=== PATIENT | female | born 1975 | race Caucasian/White ===

== ENCOUNTER 2018-05-20 21:47 | Inpatient (IN) ==
[2018-05-20] MEDS ORDERED: Isovue-370 500 ML INFUS..BTL IV ONE (22:41)
[2018-05-20 22:45] LABS: Bilirubin,Urine Moderate (Negative); Blood,Urine Small (Negative); Clarity,Urine Turbid (Clear); Color,Urine Orange (Yellow); Glucose,Urine (UA) Normal (Normal); Ketones,Urine Trace mg/dL (Negative); Leukocyte Esterase,Urine Small (Negative); Nitrite,Urine Positive (Negative); PH,Urine 5.5 pH Units (5.0-8.0); Protein,Urine 30 mg/dL (Neg-Trace); Specific Gravity,Urine > 1.030 (1.010-1.025); Urobilinogen,Urine Normal (Normal)
[2018-05-20 22:49] LABS: Hyaline Casts,Urine None Seen per lpf (None-Few); Squamous Epithelial Cell,Urine Moderate per lpf (None-Few); WBC,Urine 0-3 per hpf (0-3)
[2018-05-20 23:05] LABS: Amorphous Sediment,Urine Many (Few); Calcium Oxalate Crystals,Urine Present
[2018-05-20 23:06] LABS: Bacteria,Urine Moderate per hpf (None-Few)
[2018-05-20] MEDS ORDERED: Hyoscyamine 0.5 MG/ML MLS IVP ONE (23:14)
[2018-05-20] MEDS ORDERED: Ondansetron 4 MG/2 ML VIAL IVP ONE (23:14)
[2018-05-20 23:21] LABS: Basophils % 0.4 %; Eosinophils # 0.1 K/mcL (0.0-0.6); Eosinophils % 0.7 %; Hemoglobin 13.3 g/dL (11.5-15.4); Immature Granulocytes % 0.3 % (0-4); Lymphocytes # 1.1 K/mcL (0.6-4.6); Lymphocytes % 14.7 %; Mean Corpuscular HGB Conc 34.1 g/dL (31.6-35.5); Mean Corpuscular Hemoglobin 32.4 pg (28.0-33.3); Mean Corpuscular Volume 94.9 fL (83.0-100.0); Mean Platelet Volume 10.7 fL (9.4-12.4); Monocytes # 0.7 K/mcL (0.0-1.3); Monocytes % 8.5 %; Neutrophils # 5.8 K/mcL (1.6-8.9); Platelet Count 200 K/mcL (140-400); Red Blood Count 4.11 M/mcL (3.82-4.97); Red Cell Distribution Width 13.1 % (11.5-14.5); Segmented Neutrophils % 75.4 %
[2018-05-20 23:40] LABS: Alanine Aminotransferase 192 Units/L (7-52); Albumin 4.2 g/dL (3.5-5.7); Albumin/Globulin Ratio 1.6 (1.1-2.2); Alkaline Phosphatase 130 Units/L (34-104); Aspartate Amino Transferase 464 Units/L (13-39); BUN/Creatinine Ratio 10 (6-26); Bilirubin,Direct 1.4 mg/dL (0.0-0.2); Bilirubin,Indirect 0.4 mg/dL (0.0-1.2); Bilirubin,Total 1.8 mg/dL (0.3-1.0); Blood Urea Nitrogen 6 mg/dL (6-20); Calcium 9.2 mg/dL (8.6-10.3); Carbon Dioxide 23 mEq/L (23-29); Chloride 107 mEq/L (98-107); Globulin 2.6 g/dL (2.4-3.5); Glucose 132 mg/dL (70-105); Lipase 28 Units/L (11-82); Osmolality,Calculated 283 (280-300); Sodium 137 mEq/L (136-145); Total Protein 6.8 g/dL (6.4-8.9); eGFR For Non-African Americans > 60 (> 60)
[2018-05-21] MEDS ORDERED: 0.9 % Sodium Chloride 1,000 ML IVC ONE (00:58)
--- NOTE | 2018-05-21 01:39 | Emergency Department Note ---
Disposition Clinical Impression: Cholecystitis, Elevated LFTs, Nausea vomiting and diarrhea Abdominal pain Qualifiers: Abdominal location: right upper quadrant Qualified Code(s): R10.11 - Right upper quadrant pain Disposition: Admitted As Inpatient Condition: Fair Forms: ED Satisfaction Letter, Work/School Release Time of Disposition: 04:03 Abdominal Pain HPI - General Chief Complaint: ED Abdominal Pain Stated Complaint: abdominal pain Time Seen by Provider: 05/20/18 22:16 Source: patient Mode of arrival: ambulatory Limitations: no limitations Nursing Notes Reviewed: Yes Vital Signs Reviewed: Yes - History of Present Illness HPI Narrative: Patient is a 42-year-old female who presents to [facility] ED with a chief complaint of epigastric and right upper quadrant abdominal pain. States her symptoms started this morning prior to her boarding a flight coming back from [place]. Patient states that the symptoms seem to get a little bit better and she was able to eat on her flight. However when she got off, the pain came back worse. States she was nauseated and vomited everything up. States she has had persistent severe pain in the epigastric and right upper quadrant since then. Denies ever having anything like this before. No prior history of any intra-abdominal surgeries. Patient denies any medical problems. States she did take a Zantac to see if this help her symptoms but it did not. Patient denies any alcohol use. Also states she does not eat any seafood. Pt Subjective Complaint: abdominal pain Onset (ago): day(s) (1) Consistency: Worsening Location: RUQ, epigastric Pain Severity: severe Pain Scale: 8 Quality: aching Radiation: none Migration to: no migration Improves with: nothing Worsens with: eating Associated symptoms: Reports: nausea, vomiting, diarrhea. Denies: fever, chills , constipation, dysuria Treatments prior to arrival: none - Related Data Previous Rx's Medication Instructions Recorded Ibuprofen [Motrin] 800 mg PO Q8HR #100 tablet 05/10/16 Penicillin VK 500 mg PO BID #20 tablet 05/10/16 Cyclobenzaprine [Flexeril] 10 mg PO TID PRN #20 tablet 05/09/18 methylPREDNISolone [Medrol] 1 each PO DAILY #1 pack 05/09/18 Allergies Allergy/AdvReac Type Severity Reaction Status Date / Time No Known Allergies Allergy Verified 05/10/16 18:34 All systems ED: reviewed and negative except as stated. 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 Psychiatric history: Reports: no psych history - Social History Smoking status: Current every day smoker Alcohol use: Reports: rarely Drug use: Reports: none Physical Exam - General General appearance: alert, in no apparent distress - Head Head exam: atraumatic, normocephalic, normal inspection - Eye Eye exam: Present: EOMI - ENT ENT exam: normal exam, normal oropharynx, mucous membranes moist - Neck Neck exam: Present: normal inspection, full ROM, trachea midline - Chest Chest inspection: Present: normal inspection, symmetric chest wall rise - Respiratory Respiratory exam: Present: normal lung sounds bilaterally - Cardiovascular Cardiovascular exam: Present: regular rate, normal rhythm, normal heart sounds - Abdominal Exam Abdominal exam: Present: soft, tenderness. Absent: distention, guarding, rebound, rigidity Abdominal tenderness: Present: RUQ, epigastrium, moderate - Extremities Exam Extremities exam: Present: normal inspection, full ROM. Absent: tenderness, pedal edema - Neurological Exam Neurological exam: Present: alert, oriented X3 - Psychiatric Psychiatric exam: Present: normal affect, normal mood - Skin Skin exam: Present: warm, dry, intact, normal color Course Course Narrative: Patient seen and examined. Right upper quadrant and epigastric abdominal pain all day. Abdominal labs ordered. We will do a CT scan of the abdomen and pelvis with IV contrast to evaluate. - Reevaluation(s) Reevaluation #1: CT scan did show distended gallbladder with some intra-hepatic biliary dilation. Ultrasound of the gallbladder ordered. Patient's lab work does show signs of elevated LFTs and mildly elevated total bilirubin and direct bilirubin. Hepatitis profile ordered. Time: 04:02 Reevaluation #2: Patient's gallbladder ultrasound was equivocal for acute cholecystitis. I discussed with surgeon Dr. Thompson who has accepted patient for admission. She would like basic initial orders to be placed including normal saline at 125 mL per hour, Zosyn Q8 hours, oxycodone sublingual every 4 hours prn pain, Zofran 4 mg every 8 hours prn nausea. These admission orders have been placed Time: 04:05 Vital Signs Temperature 97.5 F L 05/20/18 22:03 Pulse Rate 74 05/20/18 22:03 Respiratory Rate 16 05/20/18 22:03 Blood Pressure 125/80 05/20/18 22:03 O2 Sat by Pulse Oximetry 97 05/20/18 22:03 Temperature 97.5 F L 05/20/18 22:03 Pulse Rate 65 05/21/18 02:35 Respiratory Rate 16 05/21/18 02:35 Blood Pressure 115/81 05/21/18 02:35 O2 Sat by Pulse Oximetry 98 05/21/18 02:35 Oxygen Delivery Oxygen Delivery Room Air Abdominal Pain - Medical Records Medical records reviewed: Yes I reviewed the patient's medical records. - Lab Data Lab results reviewed: Yes I reviewed the patient's lab results. Result diagrams: 05/20/18 22:42 05/20/18 22:42 Lab Results 05/20/18 05/20/18 05/20/18 Range/Units 21:56 22:42 22:42 WBC 7.7 (4.3-11.1) K/mcL RBC 4.11 (3.82-4.97) M/mcL Hgb 13.3 (11.5-15.4) g/dL Hct 39.0 (35.3-44.9) % MCV 94.9 (83.0-100.0) fL MCH 32.4 (28.0-33.3) pg MCHC 34.1 (31.6-35.5) g/dL RDW 13.1 (11.5-14.5) % Plt Count 200 (140-400) K/mcL MPV 10.7 (9.4-12.4) fL Immature Gran % 0.3 (0-4) % Seg Neutrophils % 75.4 % Lymphocytes % 14.7 % Monocytes % 8.5 % Eosinophils % 0.7 % Basophils % 0.4 % Neutrophils # 5.8 (1.6-8.9) K/mcL Lymphocytes # 1.1 (0.6-4.6) K/mcL Monocytes # 0.7 (0.0-1.3) K/mcL Eosinophils # 0.1 (0.0-0.6) K/mcL Basophils # 0.0 (0.0-0.2) K/mcL Sodium 137 (136-145) mEq/L Potassium 4.0 (3.5-5.1) mEq/L Chloride 107 (98-107) mEq/L Carbon Dioxide 23 (23-29) mEq/L BUN 6 (6-20) mg/dL Creatinine 0.63 (0.60-1.20) mg/dL Est GFR ( Amer) > 60 (> 60) Est GFR (Non-Af Amer) > 60 (> 60) BUN/Creatinine Ratio 10 (6-26) Glucose 132 H (70-105) mg/dL Calculated Osmolality 283 (280-300) Calcium 9.2 (8.6-10.3) mg/dL Total Bilirubin 1.8 H (0.3-1.0) mg/dL Direct Bilirubin 1.4 H (0.0-0.2) mg/dL Indirect Bilirubin 0.4 (0.0-1.2) mg/dL AST 464 H (13-39) Units/L ALT 192 H (7-52) Units/L Alkaline Phosphatase 130 H (34-104) Units/L Serum Total Protein 6.8 (6.4-8.9) g/dL Albumin 4.2 (3.5-5.7) g/dL Globulin 2.6 (2.4-3.5) g/dL Albumin/Globulin Ratio 1.6 (1.1-2.2) Lipase 28 (11-82) Units/L Ur Specimen Adequacy See below A Urine Color [place] A (Yellow) Urine Clarity Turbid A (Clear) Urine pH 5.5 (5.0-8.0) pH Units Ur Specific [place] > 1.030 H (1.010-1.025) Urine Protein 30 H (Neg-Trace) mg/dL Urine Glucose (UA) Normal (Normal) mg/dL Urine Ketones Trace H (Negative) mg/dL Urine Blood Small H (Negative) Urine Nitrite Positive A (Negative) Urine Bilirubin Moderate H (Negative) Urine Urobilinogen Normal (Normal) mg/dL Ur Leukocyte Esterase Small H (Negative) Urine Microscopic RBC 3-5 H (0-3) per hpf Urine Microscopic WBC 0-3 (0-3) per hpf Ur Squamous Epith Cells Moderate H (None-Few) per lpf Calcium Oxalate Crystal Present Amorphous Sediment Many H (Few) Urine Bacteria Moderate H (None-Few) per hpf Hyaline Casts None Seen (None-Few) per lpf Ur Culture Indicated? YES A (NO) Hep Bs Antigen (Nonreactive) 09/08/18 Range/Units 01:14 WBC (4.3-11.1) K/mcL RBC (3.82-4.97) M/mcL Hgb (11.5-15.4) g/dL Hct (35.3-44.9) % MCV (83.0-100.0) fL MCH (28.0-33.3) pg MCHC (31.6-35.5) g/dL RDW (11.5-14.5) % Plt Count (140-400) K/mcL MPV (9.4-12.4) fL Immature Gran % (0-4) % Seg Neutrophils % % Lymphocytes % % Monocytes % % Eosinophils % % Basophils % % Neutrophils # (1.6-8.9) K/mcL Lymphocytes # (0.6-4.6) K/mcL Monocytes # (0.0-1.3) K/mcL Eosinophils # (0.0-0.6) K/mcL Basophils # (0.0-0.2) K/mcL Sodium (136-145) mEq/L Potassium (3.5-5.1) mEq/L Chloride (98-107) mEq/L Carbon Dioxide (23-29) mEq/L BUN (6-20) mg/dL Creatinine (0.60-1.20) mg/dL Est GFR ( Amer) (> 60) Est GFR (Non-Af Amer) (> 60) BUN/Creatinine Ratio (6-26) Glucose (70-105) mg/dL Calculated Osmolality (280-300) Calcium (8.6-10.3) mg/dL Total Bilirubin (0.3-1.0) mg/dL Direct Bilirubin (0.0-0.2) mg/dL Indirect Bilirubin (0.0-1.2) mg/dL AST (13-39) Units/L ALT (7-52) Units/L Alkaline Phosphatase (34-104) Units/L Serum Total Protein (6.4-8.9) g/dL Albumin (3.5-5.7) g/dL Globulin (2.4-3.5) g/dL Albumin/Globulin Ratio (1.1-2.2) Lipase (11-82) Units/L Ur Specimen Adequacy Urine Color (Yellow) Urine Clarity (Clear) Urine pH (5.0-8.0) pH Units Ur Specific [place] (1.010-1.025) Urine Protein (Neg-Trace) mg/dL Urine Glucose (UA) (Normal) mg/dL Urine Ketones (Negative) mg/dL Urine Blood (Negative) Urine Nitrite (Negative) Urine Bilirubin (Negative) Urine Urobilinogen (Normal) mg/dL Ur Leukocyte Esterase (Negative) Urine Microscopic RBC (0-3) per hpf Urine Microscopic WBC (0-3) per hpf Ur Squamous Epith Cells (None-Few) per lpf Calcium Oxalate Crystal Amorphous Sediment (Few) Urine Bacteria (None-Few) per hpf Hyaline Casts (None-Few) per lpf Ur Culture Indicated? (NO) Hep Bs Antigen Nonreactive (Nonreactive) - Radiology Data Radiology results reviewed: Yes I reviewed the patient's radiology results. Gallbladder Ultrasound 05/21/18 01:10 IMPRESSION: Equivocal for cholecystitis - cholelithiasis with borderline wall thickening but no pericholecystic fluid or sonographic Peñaloza's sign. Mild intra and extrahepatic bile duct dilatation mirrors that on comparison CT. No appreciable choledocholithiasis. D/ / Lyndon Cuellar / Lyndon Cuellar Interpreting Provider: Lyndon Cuellar Abdomen/Pelvis CT 05/21/18 22:41 IMPRESSION: Mild suspected intra/extrahepatic biliary ductal dilation; the common duct tapers distally without obstructing calcified stone. Correlation for biliary obstruction is recommended. Suspected periportal edema, nonspecific finding which could be related to hydration. It is also can be seen with inflammatory processes of the right upper quadrant to include hepatitis. D/ / Deborah Chacon Cha, MD / Deborah Chacon Cha, MD Interpreting Provider: Deborah Chacon Cha, MD
[2018-05-21 01:54] LABS: Hepatitis B Surface Antigen Nonreactive (Nonreactive)
[2018-05-21] MEDS ORDERED: Naloxone 0.4 MG/ML INJ IVP PRN (02:57)
[2018-05-21] MEDS ORDERED: Ondansetron 4 MG/2 ML VIAL IVP PRN (02:57)
--- NOTE | 2018-05-21 03:52 | Emergency Department Note ---
Disposition Clinical Impression: Acute cholecystitis Abdominal pain Qualifiers: Abdominal location: upper abdomen, unspecified Qualified Code(s): R10.10 - Upper abdominal pain, unspecified Disposition: Admitted As Inpatient Condition: Fair Forms: ED Satisfaction Letter, Work/School Release Abdominal Pain HPI - General Chief Complaint: ED Abdominal Pain Stated Complaint: abdominal pain Time Seen by Provider: 05/20/18 22:16 Source: patient Mode of arrival: ambulatory Limitations: no limitations Nursing Notes Reviewed: Yes Vital Signs Reviewed: Yes - History of Present Illness Pt Subjective Complaint: abdominal pain Location: RUQ, epigastric Pain Severity: severe Pain Scale: 8 Quality: aching Migration to: no migration Improves with: nothing Worsens with: eating Associated symptoms: Reports: nausea, vomiting, diarrhea. 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 Psychiatric history: Reports: no psych history - Social History Smoking status: Current every day smoker Alcohol use: Reports: rarely Drug use: Reports: none Physical Exam - General Limitations: no limitations General appearance: alert, in no apparent distress Course Vital Signs Temperature 97.5 F L 05/20/18 22:03 Pulse Rate 74 05/20/18 22:03 Respiratory Rate 16 05/20/18 22:03 Blood Pressure 125/80 05/20/18 22:03 O2 Sat by Pulse Oximetry 97 05/20/18 22:03 Temperature 97.5 F L 05/20/18 22:03 Pulse Rate 69 05/21/18 03:34 Respiratory Rate 16 05/21/18 03:34 Blood Pressure 122/82 05/21/18 03:34 O2 Sat by Pulse Oximetry 99 05/21/18 03:34 Oxygen Delivery Oxygen Delivery Room Air Abdominal Pain - Lab Data Result diagrams: 05/20/18 22:42 05/20/18 22:42 Lab Results 09/03/3005/20/18 05/20/18 Range/Units 21:56 22:42 22:42 WBC 7.7 (4.3-11.1) K/mcL RBC 4.11 (3.82-4.97) M/mcL Hgb 13.3 (11.5-15.4) g/dL Hct 39.0 (35.3-44.9) % MCV 94.9 (83.0-100.0) fL MCH 32.4 (28.0-33.3) pg MCHC 34.1 (31.6-35.5) g/dL RDW 13.1 (11.5-14.5) % Plt Count 200 (140-400) K/mcL MPV 10.7 (9.4-12.4) fL Immature Gran % 0.3 (0-4) % Seg Neutrophils % 75.4 % Lymphocytes % 14.7 % Monocytes % 8.5 % Eosinophils % 0.7 % Basophils % 0.4 % Neutrophils # 5.8 (1.6-8.9) K/mcL Lymphocytes # 1.1 (0.6-4.6) K/mcL Monocytes # 0.7 (0.0-1.3) K/mcL Eosinophils # 0.1 (0.0-0.6) K/mcL Basophils # 0.0 (0.0-0.2) K/mcL Sodium 137 (136-145) mEq/L Potassium 4.0 (3.5-5.1) mEq/L Chloride 107 (98-107) mEq/L Carbon Dioxide 23 (23-29) mEq/L BUN 6 (6-20) mg/dL Creatinine 0.63 (0.60-1.20) mg/dL Est GFR ( Amer) > 60 (> 60) Est GFR (Non-Af Amer) > 60 (> 60) BUN/Creatinine Ratio 10 (6-26) Glucose 132 H (70-105) mg/dL Calculated Osmolality 283 (280-300) Calcium 9.2 (8.6-10.3) mg/dL Total Bilirubin 1.8 H (0.3-1.0) mg/dL Direct Bilirubin 1.4 H (0.0-0.2) mg/dL Indirect Bilirubin 0.4 (0.0-1.2) mg/dL AST 464 H (13-39) Units/L ALT 192 H (7-52) Units/L Alkaline Phosphatase 130 H (34-104) Units/L Serum Total Protein 6.8 (6.4-8.9) g/dL Albumin 4.2 (3.5-5.7) g/dL Globulin 2.6 (2.4-3.5) g/dL Albumin/Globulin Ratio 1.6 (1.1-2.2) Lipase 28 (11-82) Units/L Ur Specimen Adequacy See below A Urine Color [place] A (Yellow) Urine Clarity Turbid A (Clear) Urine pH 5.5 (5.0-8.0) pH Units Ur Specific [place] > 1.030 H (1.010-1.025) Urine Protein 30 H (Neg-Trace) mg/dL Urine Glucose (UA) Normal (Normal) mg/dL Urine Ketones Trace H (Negative) mg/dL Urine Blood Small H (Negative) Urine Nitrite Positive A (Negative) Urine Bilirubin Moderate H (Negative) Urine Urobilinogen Normal (Normal) mg/dL Ur Leukocyte Esterase Small H (Negative) Urine Microscopic RBC 3-5 H (0-3) per hpf Urine Microscopic WBC 0-3 (0-3) per hpf Ur Squamous Epith Cells Moderate H (None-Few) per lpf Calcium Oxalate Crystal Present Amorphous Sediment Many H (Few) Urine Bacteria Moderate H (None-Few) per hpf Hyaline Casts None Seen (None-Few) per lpf Ur Culture Indicated? YES A (NO) Hep Bs Antigen (Nonreactive) 05/21/18 Range/Units 01:14 WBC (4.3-11.1) K/mcL RBC (3.82-4.97) M/mcL Hgb (11.5-15.4) g/dL Hct (35.3-44.9) % MCV (83.0-100.0) fL MCH (28.0-33.3) pg MCHC (31.6-35.5) g/dL RDW (11.5-14.5) % Plt Count (140-400) K/mcL MPV (9.4-12.4) fL Immature Gran % (0-4) % Seg Neutrophils % % Lymphocytes % % Monocytes % % Eosinophils % % Basophils % % Neutrophils # (1.6-8.9) K/mcL Lymphocytes # (0.6-4.6) K/mcL Monocytes # (0.0-1.3) K/mcL Eosinophils # (0.0-0.6) K/mcL Basophils # (0.0-0.2) K/mcL Sodium (136-145) mEq/L Potassium (3.5-5.1) mEq/L Chloride (98-107) mEq/L Carbon Dioxide (23-29) mEq/L BUN (6-20) mg/dL Creatinine (0.60-1.20) mg/dL Est GFR ( Amer) (> 60) Est GFR (Non-Af Amer) (> 60) BUN/Creatinine Ratio (6-26) Glucose (70-105) mg/dL Calculated Osmolality (280-300) Calcium (8.6-10.3) mg/dL Total Bilirubin (0.3-1.0) mg/dL Direct Bilirubin (0.0-0.2) mg/dL Indirect Bilirubin (0.0-1.2) mg/dL AST (13-39) Units/L ALT (7-52) Units/L Alkaline Phosphatase (34-104) Units/L Serum Total Protein (6.4-8.9) g/dL Albumin (3.5-5.7) g/dL Globulin (2.4-3.5) g/dL Albumin/Globulin Ratio (1.1-2.2) Lipase (11-82) Units/L Ur Specimen Adequacy Urine Color (Yellow) Urine Clarity (Clear) Urine pH (5.0-8.0) pH Units Ur Specific [place] (1.010-1.025) Urine Protein (Neg-Trace) mg/dL Urine Glucose (UA) (Normal) mg/dL Urine Ketones (Negative) mg/dL Urine Blood (Negative) Urine Nitrite (Negative) Urine Bilirubin (Negative) Urine Urobilinogen (Normal) mg/dL Ur Leukocyte Esterase (Negative) Urine Microscopic RBC (0-3) per hpf Urine Microscopic WBC (0-3) per hpf Ur Squamous Epith Cells (None-Few) per lpf Calcium Oxalate Crystal Amorphous Sediment (Few) Urine Bacteria (None-Few) per hpf Hyaline Casts (None-Few) per lpf Ur Culture Indicated? (NO) Hep Bs Antigen Nonreactive (Nonreactive) Attestation Statement - Attestation Attestation: I, Flo Boyer, examined this patient and my medical decision-making was reviewed with the PECAN HULLER/PA/Advanced Practice Nurse/Resident Physician. I agree with the documented findings, disposition and treatment plan as described except to the extent set forth below. 42-year-old female presents emergency Department with concerns of epigastric right upper quadrant abdominal pain. Patient states symptoms started after eating this morning. She reported that there were severe throughout the day. No history of similar symptoms in the past. Denies a history of IV drug use or significant amount of EtOH use. Patient had significant tenderness to the right upper quadrant and the epigastrium on evaluation with guarding without evidence of rigidity or rebound. Patient is not jaundiced and does not have altered mental status. CT of the abdomen and pelvis showed biliary duct dilatation without evidence of choledocholithiasis. Ultrasound showed mild thickening of the gallbladder wall without evidence of pericholecystic fluid. Common bile duct was dilated without evidence of choledocholithiasis. Patient continues to have moderate tenderness to palpation of the right upper quadrant. She is elevation of her LFTs on laboratory evaluation. Resident spoke with Dr. Campa who agreed to accept the patient onto her service. Patient is comfortable to plan of action of admission to the hospital.
[2018-05-21] MEDS: 0.9 % Sodium Chloride 1,000 ML IVC SCH (06:39)
[2018-05-21 08:16] LABS: Basophils % 0.4 %; Eosinophils # 0.1 K/mcL (0.0-0.6); Eosinophils % 1.9 %; Hematocrit 37.2 % (35.3-44.9); Hemoglobin 12.5 g/dL (11.5-15.4); Immature Granulocytes % 0.2 % (0-4); Lymphocytes # 1.5 K/mcL (0.6-4.6); Mean Corpuscular HGB Conc 33.6 g/dL (31.6-35.5); Mean Corpuscular Hemoglobin 32.2 pg (28.0-33.3); Mean Corpuscular Volume 95.9 fL (83.0-100.0); Mean Platelet Volume 10.3 fL (9.4-12.4); Monocytes # 0.5 K/mcL (0.0-1.3); Monocytes % 9.7 %; Neutrophils # 3.3 K/mcL (1.6-8.9); Platelet Count 189 K/mcL (140-400); Red Blood Count 3.88 M/mcL (3.82-4.97); Red Cell Distribution Width 13.2 % (11.5-14.5); Segmented Neutrophils % 60.8 %
[2018-05-21 08:35] LABS: BUN/Creatinine Ratio 7 (6-26); Blood Urea Nitrogen 4 mg/dL (6-20); Calcium 8.6 mg/dL (8.6-10.3); Carbon Dioxide 25 mEq/L (23-29); Chloride 110 mEq/L (98-107); Glucose 96 mg/dL (70-105); Osmolality,Calculated 283 (280-300); Potassium 4.2 mEq/L (3.5-5.1); Sodium 138 mEq/L (136-145); eGFR For Non-African Americans > 60 (> 60)
[2018-05-21 08:36] LABS: Albumin 3.7 g/dL (3.5-5.7); Albumin/Globulin Ratio 1.8 (1.1-2.2); Bilirubin,Direct 2.2 mg/dL (0.0-0.2); Bilirubin,Indirect 0.7 mg/dL (0.0-1.2); Bilirubin,Total 2.9 mg/dL (0.3-1.0); Globulin 2.1 g/dL (2.4-3.5); Total Protein 5.8 g/dL (6.4-8.9)
[2018-05-21] MEDS: Nicotine 21 MG PATCH.TD24 TD SCH (09:32)
[2018-05-21] MEDS: Piperacillin/Tazobactam 3.375 GM in 0.9 % Sodium Chloride Mini Bag 100 ML IVPB SCH ×2 (09:33→16:09)
--- NOTE | 2018-05-21 09:41 | General Surg History&Physical ---
<Lucien Hernandez R - Last Filed: 05/21/18 14:53> Date of Encounter: 05/21/18 Time of Encounter: 09:25 Assessment and Plan (1) Abdominal pain Current Visit: Yes Status: Acute The assessment and plan as outlined above was discussed with the patient and/or family members who expressed understanding and agreement. All questions were answered. Patient reports improved pain and nausea at this time. MRCP is equivocal for cholecystitis vs hepatitis Plan: Repeat labs- hepatic panel, cbc, bmp Clear liquid diet Will obtain HIDA scan for better evaluation. IV fluids continue abx- zosyn comfort care and pain control prn antiemetic Ambulate ad endy Qualifiers: Abdominal location: right upper quadrant Qualified Code(s): R10.11 - Right upper quadrant pain (2) Smoking addiction Current Visit: Yes Status: Acute The assessment and plan as outlined above was discussed with the patient and/or family members who expressed understanding and agreement. All questions were answered. Nicotine patch daily (3) DVT prophylaxis Current Visit: Yes Status: Acute The assessment and plan as outlined above was discussed with the patient and/or family members who expressed understanding and agreement. All questions were answered. EPCDs Ambulation History of Present Illness Chief complaint: abdominal pain HPI: Ms. Shah is a 42 year old female without significant medical history. Presented yesterday evening to the ED for evaluation of epigastric/RUQ pain, nausea, and vomiting. Patient states that pain began yesterday morning and initially self resolved. Pain worsened significantly after eating lunch with associated nausea and vomiting. Intermittent diarrhea a few days ago. Denies fever or chills. No history of similar pain. Denies IV drug use, denies significant alcohol. Denies history of liver or gallbladder disease. Significant right upper quadrant pain was reported by the ED and LFTs were found to be elevate. CT abdomen and US gallbladder were performed. Findings included biliary duct dilation without evidence of choledocholithiasis, and mild gallbladder wall thickening. At present patient reports significant improvement in abdominal pain, near baseline. Stating very mild pain present in the epigastric and right upper quadrant regions. She denies ongoing nausea or vomiting, diarrhea or change in bowel habits. Patient does not endorse appetite and would like to eat. Ambulating without issue. Past Med Surg Social Fam HX - Past Medical History Medical history: no medical history Psychiatric history: no psych history - Past Surgical History Surgical History: non-contributory - Social History Smoking Status: Current every day smoker Smokeless Tobacco Status: No Alcohol use: rarely Drug use: none Medications and Allergies Ibuprofen [Motrin] 800 mg PO Q8HR #100 tablet 05/10/16 [Rx] Cyclobenzaprine [Flexeril] 10 mg PO TID PRN #20 tablet 05/09/18 [Rx] 3 Allergy/AdvReac Type Severity Reaction Status Date / Time No Known Allergies Allergy Verified 05/21/18 11:00 Review of Systems All systems PM: The remainder of the systems were reviewed and are negative - Cardiovascular no chest pain - Respiratory no dyspnea - Gastrointestinal abdominal pain, nausea, vomiting, no coffee ground emesis, no hematemesis, no hematochezia, no melena General Surgery Exam Initial Vital Signs Temp Pulse Resp BP Pulse Ox 97.5 F L 74 16 125/80 97 05/20/18 22:03 05/20/18 22:03 05/20/18 22:03 05/20/18 22:03 05/20/18 22:03 - General physical appearance well nourished, no distress, no pain - Eyes PERRL, normal ocular movement - ENT normal mucosa, atraumatic, normocephalic - Neck trachea midline - Respiratory normal expansion, clear to auscultation - Cardiovascular Cardiovascular exam: Present: RRR - Abdomen Abdomen general surgery: Present: bowel sounds present, soft, tender (Mild tenderness to palpation epigastrium and right upper quadrant). Absent: distended, guarding, rebound Abdominal Tenderness: Present: epigastic, RUQ - Integumentary Integumentary general surgery: Present: warm and dry, no abnormal pigmentation - Neurologic Present: CN 2-12 grossly intact - Musculoskeletal Present: normal posture - Psychiatric Psychiatric general surgery: Present: A&Ox3, speech is normal, memory intact Results - Labs 05/21/18 08:01 05/21/18 08:01 Abnormal lab results Chloride 110 mEq/L (98-107) H 05/21/18 08:01 BUN 4 mg/dL (6-20) L 05/21/18 08:01 Creatinine 0.57 mg/dL (0.60-1.20) L 05/21/18 08:01 Total Bilirubin 2.9 mg/dL (0.3-1.0) H 05/21/18 08:01 Direct Bilirubin 2.2 mg/dL (0.0-0.2) H 05/21/18 08:01 AST 336 Units/L (13-39) H 05/21/18 08:01 ALT 182 Units/L (7-52) H 05/21/18 08:01 Alkaline Phosphatase 163 Units/L (34-104) H 05/21/18 08:01 Serum Total Protein 5.8 g/dL (6.4-8.9) L 05/21/18 08:01 Globulin 2.1 g/dL (2.4-3.5) L 05/21/18 08:01 Ur Specimen Adequacy See below A 05/20/18 21:56 Urine Color [place] (Yellow) A 05/20/18 21:56 Urine Clarity Turbid (Clear) A 05/20/18 21:56 Ur Specific [place] > 1.030 (1.010-1.025) H 05/20/18 21:56 Urine Protein 30 mg/dL (Neg-Trace) H 05/20/18 21:56 Urine Ketones Trace mg/dL (Negative) H 05/20/18 21:56 Urine Blood Small (Negative) H 05/20/18 21:56 Urine Nitrite Positive (Negative) A 05/20/18 21:56 Urine Bilirubin Moderate (Negative) H 05/20/18 21:56 Ur Leukocyte Esterase Small (Negative) H 05/20/18 21:56 Urine Microscopic RBC 3-5 per hpf (0-3) H 05/20/18 21:56 Ur Squamous Epith Cells Moderate per lpf (None-Few) H 05/20/18 21:56 Amorphous Sediment Many (Few) H 05/20/18 21:56 Urine Bacteria Moderate per hpf (None-Few) H 05/20/18 21:56 Ur Culture Indicated? YES (NO) A 05/20/18 21:56 Diabetes panel 05/21/18 05/21/18 Range/Units 08:01 08:01 Sodium 138 (136-145) mEq/L Potassium 4.2 (3.5-5.1) mEq/L Chloride 110 H (98-107) mEq/L Carbon Dioxide 25 (23-29) mEq/L BUN 4 L (6-20) mg/dL Creatinine 0.57 L (0.60-1.20) mg/dL Glucose 96 (70-105) mg/dL Calcium 8.6 (8.6-10.3) mg/dL AST 336 H (13-39) Units/L ALT 182 H (7-52) Units/L Alkaline Phosphatase 163 H (34-104) Units/L Albumin 3.7 (3.5-5.7) g/dL Calcium panel 05/21/18 05/21/18 Range/Units 08:01 08:01 Calcium 8.6 (8.6-10.3) mg/dL Albumin 3.7 (3.5-5.7) g/dL Pituitary panel 05/21/18 Range/Units 08:01 Sodium 138 (136-145) mEq/L Potassium 4.2 (3.5-5.1) mEq/L Chloride 110 H (98-107) mEq/L Carbon Dioxide 25 (23-29) mEq/L BUN 4 L (6-20) mg/dL Creatinine 0.57 L (0.60-1.20) mg/dL Glucose 96 (70-105) mg/dL Calcium 8.6 (8.6-10.3) mg/dL Adrenal panel 05/21/18 05/21/18 Range/Units 08:01 08:01 Sodium 138 (136-145) mEq/L Potassium 4.2 (3.5-5.1) mEq/L Chloride 110 H (98-107) mEq/L Carbon Dioxide 25 (23-29) mEq/L BUN 4 L (6-20) mg/dL Creatinine 0.57 L (0.60-1.20) mg/dL Glucose 96 (70-105) mg/dL Calcium 8.6 (8.6-10.3) mg/dL Total Bilirubin 2.9 H (0.3-1.0) mg/dL AST 336 H (13-39) Units/L ALT 182 H (7-52) Units/L Alkaline Phosphatase 163 H (34-104) Units/L Albumin 3.7 (3.5-5.7) g/dL All other labs normal. - VTE Reasons for not Prescribing Prophylaxis: Treatment not Indicated - Low risk for VTE <Anna Campa - Last Filed: 05/21/18 17:04> Date of Encounter: 05/21/18 Assessment and Plan (1) Abdominal pain Current Visit: Yes Status: Acute The assessment and plan as outlined above was discussed with the patient and/or family members who expressed understanding and agreement. All questions were answered. patients pain is soley epigastric she is currently pain free CT scan results noted and colon looks a little thicker walled to me elevated LFT's mrcp equivical for hepatitis vs cholecystisis hida orderd clears after hida continue abx serial abdominal exams Qualifiers: Abdominal location: epigastric Qualified Code(s): R10.13 - Epigastric pain (2) Elevated LFTs Current Visit: Yes Status: Acute The assessment and plan as outlined above was discussed with the patient and/or family members who expressed understanding and agreement. All questions were answered. mrcp showed no cbd stone trend (3) Nausea vomiting and diarrhea Current Visit: Yes Status: Acute The assessment and plan as outlined above was discussed with the patient and/or family members who expressed understanding and agreement. All questions were answered. (4) Smoking addiction Current Visit: Yes Status: Acute The assessment and plan as outlined above was discussed with the patient and/or family members who expressed understanding and agreement. All questions were answered. History of Present Illness HPI: Ms. Shah is a 42 year old female who was in [place] yesterday and started having epigastric sharp pain without radiation. Pain improved and she ate cheeseberger and fries at airport then became more symptomatic on plane ride home. Pain became worse with nasuea and vomiting. No diarrhea. Patient denies RUQ pain. Denies history hepatitis Past Med Surg Social Fam HX - Past Medical History Source: patient Medical history: no medical history Psychiatric history: no psych history - Past Surgical History Surgical History: hysterectomy Review of Systems All systems PM: reviewed and no additional remarkable complaints except as stated All systems PM: The remainder of the systems were reviewed and are negative General Surgery Exam Initial Vital Signs Temp Pulse Resp BP Pulse Ox 97.5 F L 74 16 125/80 97 05/20/18 22:03 05/20/18 22:03 05/20/18 22:03 05/20/18 22:03 05/20/18 22:03 - General physical appearance well developed, well nourished, no distress, no pain - Eyes PERRL, normal ocular movement - ENT normal mucosa, normocephalic - Neck trachea midline - Respiratory normal expansion, normal respiratory effort - Cardiovascular Cardiovascular exam: Present: RRR - Abdomen Abdomen general surgery: Present: bowel sounds present, soft. Absent: distended , tender, guarding, rebound - Integumentary Integumentary general surgery: Present: warm and dry, no abnormal pigmentation - Neurologic Present: CN 2-12 grossly intact - Musculoskeletal Present: normal posture - Psychiatric Psychiatric general surgery: Present: A&Ox3, speech is normal Results - Labs 05/21/18 08:01 05/21/18 08:01 Abnormal lab results Chloride 110 mEq/L (98-107) H 05/21/18 08:01 BUN 4 mg/dL (6-20) L 05/21/18 08:01 Creatinine 0.57 mg/dL (0.60-1.20) L 05/21/18 08:01 Total Bilirubin 2.9 mg/dL (0.3-1.0) H 05/21/18 08:01 Direct Bilirubin 2.2 mg/dL (0.0-0.2) H 05/21/18 08:01 AST 336 Units/L (13-39) H 05/21/18 08:01 ALT 182 Units/L (7-52) H 05/21/18 08:01 Alkaline Phosphatase 163 Units/L (34-104) H 05/21/18 08:01 Serum Total Protein 5.8 g/dL (6.4-8.9) L 05/21/18 08:01 Globulin 2.1 g/dL (2.4-3.5) L 05/21/18 08:01 Ur Specimen Adequacy See below A 05/20/18 21:56 Urine Color [place] (Yellow) A 05/20/18 21:56 Urine Clarity Turbid (Clear) A 05/20/18 21:56 Ur Specific [place] > 1.030 (1.010-1.025) H 05/20/18 21:56 Urine Protein 30 mg/dL (Neg-Trace) H 05/20/18 21:56 Urine Ketones Trace mg/dL (Negative) H 05/20/18 21:56 Urine Blood Small (Negative) H 05/20/18 21:56 Urine Nitrite Positive (Negative) A 05/20/18 21:56 Urine Bilirubin Moderate (Negative) H 05/20/18 21:56 Ur Leukocyte Esterase Small (Negative) H 05/20/18 21:56 Urine Microscopic RBC 3-5 per hpf (0-3) H 05/20/18 21:56 Ur Squamous Epith Cells Moderate per lpf (None-Few) H 05/20/18 21:56 Amorphous Sediment Many (Few) H 05/20/18 21:56 Urine Bacteria Moderate per hpf (None-Few) H 05/20/18 21:56 Ur Culture Indicated? YES (NO) A 05/20/18 21:56 Diabetes panel 05/21/18 05/21/18 Range/Units 08:01 08:01 Sodium 138 (136-145) mEq/L Potassium 4.2 (3.5-5.1) mEq/L Chloride 110 H (98-107) mEq/L Carbon Dioxide 25 (23-29) mEq/L BUN 4 L (6-20) mg/dL Creatinine 0.57 L (0.60-1.20) mg/dL Glucose 96 (70-105) mg/dL Calcium 8.6 (8.6-10.3) mg/dL AST 336 H (13-39) Units/L ALT 182 H (7-52) Units/L Alkaline Phosphatase 163 H (34-104) Units/L Albumin 3.7 (3.5-5.7) g/dL Calcium panel 05/21/18 05/21/18 Range/Units 08:01 08:01 Calcium 8.6 (8.6-10.3) mg/dL Albumin 3.7 (3.5-5.7) g/dL Pituitary panel 05/21/18 Range/Units 08:01 Sodium 138 (136-145) mEq/L Potassium 4.2 (3.5-5.1) mEq/L Chloride 110 H (98-107) mEq/L Carbon Dioxide 25 (23-29) mEq/L BUN 4 L (6-20) mg/dL Creatinine 0.57 L (0.60-1.20) mg/dL Glucose 96 (70-105) mg/dL Calcium 8.6 (8.6-10.3) mg/dL Adrenal panel 05/21/18 05/21/18 Range/Units 08:01 08:01 Sodium 138 (136-145) mEq/L Potassium 4.2 (3.5-5.1) mEq/L Chloride 110 H (98-107) mEq/L Carbon Dioxide 25 (23-29) mEq/L BUN 4 L (6-20) mg/dL Creatinine 0.57 L (0.60-1.20) mg/dL Glucose 96 (70-105) mg/dL Calcium 8.6 (8.6-10.3) mg/dL Total Bilirubin 2.9 H (0.3-1.0) mg/dL AST 336 H (13-39) Units/L ALT 182 H (7-52) Units/L Alkaline Phosphatase 163 H (34-104) Units/L Albumin 3.7 (3.5-5.7) g/dL All other labs normal. - Imaging CT scan - abdomen: report reviewed, image reviewed CT scan - pelvis: report reviewed, image reviewed - Attending Attestation I examined this patient and my medical decision-making was reviewed with the Resident Physician. I agree with the documented findings, disposition and treatment plan as described except to the extent set forth below.
[2018-05-21] MEDS ORDERED: *HR* Promethazine 25 MG/ML VIAL IVP PRN (09:48)
[2018-05-21] MEDS: OXYCODONE Oral CONC 10 MG/0.5 ML ORAL.SYG SL PRN ×2 (12:12→23:42)
[2018-05-21] MEDS ORDERED: *HR* HYDROmorphone (PF) 1 MG/ML SYRINGE IVP ONE (16:52)
[2018-05-22] MEDS ORDERED: *HR* HYDROmorphone (PF) 1 MG/ML SYRINGE IVP ONE ×2 (01:06→09:03)
[2018-05-22] MEDS: Piperacillin/Tazobactam 3.375 GM in 0.9 % Sodium Chloride Mini Bag 100 ML IVPB SCH ×4 (01:35→23:45)
[2018-05-22] MEDS ORDERED: 0.9 % Sodium Chloride 1,000 ML IVC SCH (01:45)
[2018-05-22] MEDS: 0.9 % Sodium Chloride 1,000 ML IVC SCH ×3 (01:51→23:38)
[2018-05-22 02:14] LABS: Basophils % 0.3 %; Eosinophils # 0.1 K/mcL (0.0-0.6); Eosinophils % 1.5 %; Hematocrit 40.3 % (35.3-44.9); Hemoglobin 13.3 g/dL (11.5-15.4); Immature Granulocytes % 0.5 % (0-4); Lymphocytes # 1.5 K/mcL (0.6-4.6); Lymphocytes % 17.1 %; Mean Corpuscular Volume 96.9 fL (83.0-100.0); Mean Platelet Volume 10.7 fL (9.4-12.4); Monocytes # 0.7 K/mcL (0.0-1.3); Monocytes % 7.9 %; Neutrophils # 6.4 K/mcL (1.6-8.9); Platelet Count 203 K/mcL (140-400); Red Blood Count 4.16 M/mcL (3.82-4.97); Red Cell Distribution Width 13.3 % (11.5-14.5); Segmented Neutrophils % 72.7 %
[2018-05-22 02:32] LABS: Alanine Aminotransferase 143 Units/L (7-52); Albumin 3.8 g/dL (3.5-5.7); Albumin/Globulin Ratio 1.5 (1.1-2.2); Alkaline Phosphatase 189 Units/L (34-104); Aspartate Amino Transferase 158 Units/L (13-39); Bilirubin,Direct 1.5 mg/dL (0.0-0.2); Bilirubin,Indirect 0.9 mg/dL (0.0-1.2); Bilirubin,Total 2.4 mg/dL (0.3-1.0); Carbon Dioxide 26 mEq/L (23-29); Chloride 109 mEq/L (98-107); Globulin 2.5 g/dL (2.4-3.5); Glucose 105 mg/dL (70-105); Magnesium 1.9 mg/dL (1.6-2.6); Phosphorous 3.5 mg/dL (2.7-4.5); Potassium 3.5 mEq/L (3.5-5.1); Sodium 141 mEq/L (136-145); Total Protein 6.3 g/dL (6.4-8.9); eGFR For Non-African Americans > 60 (> 60)
[2018-05-22 03:11] LABS: BUN/Creatinine Ratio 11 (6-26); Blood Urea Nitrogen 6 mg/dL (6-20); Osmolality,Calculated 290 (280-300)
[2018-05-22] MEDS: OXYCODONE Oral CONC 10 MG/0.5 ML ORAL.SYG SL PRN ×2 (08:35→23:44)
[2018-05-22] MEDS ORDERED: *HR* LORazepam 2 MG/ML VIAL IVP ONE (11:19)
[2018-05-22] MEDS ORDERED: Ketorolac 30 MG/ML VIAL IVP ONE (11:20)
[2018-05-22] MEDS ORDERED: OXYCODONE Oral CONC 10 MG/0.5 ML ORAL.SYG SL PRN ×2 (11:21→15:45)
[2018-05-22] MEDS ORDERED: OXYCODONE Oral CONC 10 MG/0.5 ML ORAL.SYG SL ONE (11:24)
[2018-05-22] MEDS ORDERED: Magic Mouthwash 10 ML UD Cup PO ONE (11:25)
[2018-05-22] MEDS: Pantoprazole 40 MG VIAL IVP SCH (11:55)
[2018-05-22] MEDS: Nicotine 21 MG PATCH.TD24 TD SCH (11:55)
--- NOTE | 2018-05-22 13:17 | General Surgery Progress Note ---
<Lucien Hernandez R - Last Filed: 05/22/18 13:07> Date of Encounter: 05/22/18 Time of Encounter: 12:45 - Assessment and Plan (1) Abdominal pain Current Visit: Yes Status: Acute Significant worsening of pain since yesterday. Patient is uncomfortable but controlled on current pain regimen. Plan: Nothing by mouth ice chips IV fluids Continue antibiotics-Zosyn Comfort care pain management prn antiemetic Ambulate ad endy Serial abdominal exams Will plan for OR tomorrow for lap caorn with Dr. campa Qualifiers: Abdominal location: epigastric Qualified Code(s): R10.13 - Epigastric pain (2) Smoking addiction Current Visit: Yes Status: Acute Continue nicotine patch daily (3) Elevated LFTs Current Visit: Yes Status: Acute MRCP did not reveal obstructing stone LFTs improved today, will trend (4) DVT prophylaxis Current Visit: Yes Status: Acute EPCPs ambulation Subjective Patient reports: still having pain, voiding w/o difficulty, flatus, vomiting, afebrile Narrative: Patient and nursing staff report severe pain overnight, crampy in quality, 10 out of 10, located in the epigastric and right upper quadrant radiates to her back and right shoulder. One episode of vomiting. No bowel movements today. Objective Vital Signs - Last 8 Hours Temp Pulse Resp BP Pulse Ox 05/22/18 10:25 97.9 F 71 18 124/80 94 05/22/18 08:30 97.7 F 95 22 126/79 95 Intake and Output 05/21/18 05/22/18 05/22/18 23:59 07:59 15:59 Intake Total 100 / 100 1000 / 1000 60 / 60 Balance 100 / 100 1000 / 1000 60 / 60 Intake: IV Fluids 100 / 100 1000 / 1000 0.9 % Sodium Chloride 1,000 ML 1000 / 1000 @ 125 mls/hr IVC .Q8H [facility] Rx#: [id number] Zosyn 3.375 GM In 0.9 % Sodium 100 / 100 Chloride (Mini-Bag +) 100 ML @ 25 mls/hr IVPB Q8HR [facility] Rx#: [id number] Oral 60 / 60 Other: # Voids 0 Weight 64.7 kg Patient Weight 05/22/18 23:59 Weight 64.7 kg - General physical appearance moderate distress, moderate pain - Eyes PERRL - ENT normal mucosa, atraumatic, normocephalic - Neck Neck exam: trachea midline - Respiratory normal expansion, normal respiratory effort - Cardiovascular Cardiovascular exam: Present: RRR - Abdomen Abdomen: Present: bowel sounds present, soft, tender (Exquisitely tender to light palpation of the epigastric, RUQ, RLQ), guarding. Absent: distended Abdominal Tenderness: epigastic, RUQ, RLQ - Integumentary no rash - Neurologic CN 2-12 grossly intact - Musculoskeletal normal posture - Psychiatric oriented to time, oriented to person, oriented to place, speech is normal, memory intact - Labs 05/22/18 01:39 05/22/18 01:39 Diabetes panel 05/22/18 Range/Units 01:39 Sodium 141 (136-145) mEq/L Potassium 3.5 (3.5-5.1) mEq/L Chloride 109 H (98-107) mEq/L Carbon Dioxide 26 (23-29) mEq/L BUN 6 (6-20) mg/dL Creatinine 0.57 L (0.60-1.20) mg/dL Glucose 105 (70-105) mg/dL Calcium 9.0 (8.6-10.3) mg/dL AST 158 H (13-39) Units/L ALT 143 H (7-52) Units/L Alkaline Phosphatase 189 H (34-104) Units/L Albumin 3.8 (3.5-5.7) g/dL Calcium panel 05/22/18 Range/Units 01:39 Calcium 9.0 (8.6-10.3) mg/dL Phosphorus 3.5 (2.7-4.5) mg/dL Albumin 3.8 (3.5-5.7) g/dL Pituitary panel 05/22/18 Range/Units 01:39 Sodium 141 (136-145) mEq/L Potassium 3.5 (3.5-5.1) mEq/L Chloride 109 H (98-107) mEq/L Carbon Dioxide 26 (23-29) mEq/L BUN 6 (6-20) mg/dL Creatinine 0.57 L (0.60-1.20) mg/dL Glucose 105 (70-105) mg/dL Calcium 9.0 (8.6-10.3) mg/dL Adrenal panel 05/22/18 Range/Units 01:39 Sodium 141 (136-145) mEq/L Potassium 3.5 (3.5-5.1) mEq/L Chloride 109 H (98-107) mEq/L Carbon Dioxide 26 (23-29) mEq/L BUN 6 (6-20) mg/dL Creatinine 0.57 L (0.60-1.20) mg/dL Glucose 105 (70-105) mg/dL Calcium 9.0 (8.6-10.3) mg/dL Total Bilirubin 2.4 H (0.3-1.0) mg/dL AST 158 H (13-39) Units/L ALT 143 H (7-52) Units/L Alkaline Phosphatase 189 H (34-104) Units/L Albumin 3.8 (3.5-5.7) g/dL - VTE Reasons for not Prescribing Prophylaxis: Treatment not Indicated - Low risk for VTE Consult Discharge Plan - Plan Referrals: NONE,PCP [Primary Care Provider] - <Anna Campa - Last Filed: 05/22/18 15:44> Date of Encounter: 05/22/18 - Assessment and Plan (1) Abdominal pain Current Visit: Yes Status: Acute patient with continued pain that is out of proportion to imaging pain is epigastric and into RUQ with radiation to right shoulder continue ivf hydration npo oxycodone prn pain toradol scheduled prn ativan plan lap cholecystectomy with cholangiograms tomorrow, risks and benefits discussed and she wishes to proceed Qualifiers: Abdominal location: epigastric Qualified Code(s): R10.13 - Epigastric pain (2) Elevated LFTs Current Visit: Yes Status: Acute (3) Nausea vomiting and diarrhea Current Visit: Yes Status: Acute prn antiemetics (4) Smoking addiction Current Visit: Yes Status: Acute Subjective Patient reports: no new complaints, still having pain, flatus, nausea, vomiting , afebrile Objective Vital Signs - Last 8 Hours Temp Pulse Resp BP Pulse Ox 05/22/18 10:25 97.9 F 71 18 124/80 94 05/22/18 08:30 97.7 F 95 22 126/79 95 Intake and Output 05/21/18 05/22/18 05/22/18 23:59 07:59 15:59 Intake Total 100 / 100 1000 / 1000 60 / 60 Balance 100 / 100 1000 / 1000 60 / 60 Intake: IV Fluids 100 / 100 1000 / 1000 0.9 % Sodium Chloride 1,000 ML 1000 / 1000 @ 125 mls/hr IVC .Q8H [facility] Rx#: [id number] Zosyn 3.375 GM In 0.9 % Sodium 100 / 100 Chloride (Mini-Bag +) 100 ML @ 25 mls/hr IVPB Q8HR [facility] Rx#: [id number] Oral 60 / 60 Other: Meal Lunch Percent of Meal Consumed 0% # Voids 0 Weight 64.7 kg Patient Weight 05/22/18 23:59 Weight 64.7 kg - General physical appearance well developed, moderate distress, moderate pain - Eyes PERRL - ENT normal mucosa, normocephalic - Neck Neck exam: trachea midline - Respiratory normal expansion, normal respiratory effort - Cardiovascular Cardiovascular exam: Present: RRR - Abdomen Abdomen: Present: bowel sounds present, soft, tender (generalized tenderness, mostly RUQ). Absent: guarding, rebound Abdominal Tenderness: epigastic, RUQ, RLQ - Integumentary no rash - Neurologic CN 2-12 grossly intact - Musculoskeletal normal posture - Psychiatric oriented to time, oriented to person, oriented to place, speech is normal, memory intact - Labs 05/22/18 01:39 05/22/18 01:39 Diabetes panel 05/22/18 Range/Units 01:39 Sodium 141 (136-145) mEq/L Potassium 3.5 (3.5-5.1) mEq/L Chloride 109 H (98-107) mEq/L Carbon Dioxide 26 (23-29) mEq/L BUN 6 (6-20) mg/dL Creatinine 0.57 L (0.60-1.20) mg/dL Glucose 105 (70-105) mg/dL Calcium 9.0 (8.6-10.3) mg/dL AST 158 H (13-39) Units/L ALT 143 H (7-52) Units/L Alkaline Phosphatase 189 H (34-104) Units/L Albumin 3.8 (3.5-5.7) g/dL Calcium panel 05/22/18 Range/Units 01:39 Calcium 9.0 (8.6-10.3) mg/dL Phosphorus 3.5 (2.7-4.5) mg/dL Albumin 3.8 (3.5-5.7) g/dL Pituitary panel 05/22/18 Range/Units 01:39 Sodium 141 (136-145) mEq/L Potassium 3.5 (3.5-5.1) mEq/L Chloride 109 H (98-107) mEq/L Carbon Dioxide 26 (23-29) mEq/L BUN 6 (6-20) mg/dL Creatinine 0.57 L (0.60-1.20) mg/dL Glucose 105 (70-105) mg/dL Calcium 9.0 (8.6-10.3) mg/dL Adrenal panel 05/22/18 Range/Units 01:39 Sodium 141 (136-145) mEq/L Potassium 3.5 (3.5-5.1) mEq/L Chloride 109 H (98-107) mEq/L Carbon Dioxide 26 (23-29) mEq/L BUN 6 (6-20) mg/dL Creatinine 0.57 L (0.60-1.20) mg/dL Glucose 105 (70-105) mg/dL Calcium 9.0 (8.6-10.3) mg/dL Total Bilirubin 2.4 H (0.3-1.0) mg/dL AST 158 H (13-39) Units/L ALT 143 H (7-52) Units/L Alkaline Phosphatase 189 H (34-104) Units/L Albumin 3.8 (3.5-5.7) g/dL - Imaging CT scan - abdomen: report reviewed, image reviewed MRI - abdomen: report reviewed, image reviewed Additional Studies: NEO - Attending Attestation I examined this patient and my medical decision-making was reviewed with the Resident Physician. I agree with the documented findings, disposition and treatment plan as described except to the extent set forth below.
[2018-05-22] MEDS ORDERED: *HR* LORazepam 2 MG/ML VIAL IVP PRN (13:33)
[2018-05-22] MEDS: Ketorolac 15 MG/ML VIAL IVP SCH ×2 (18:28→23:38)
[2018-05-23 04:30] LABS: Basophils % 0.1 %; Eosinophils % 0.3 %; Hematocrit 33.3 % (35.3-44.9); Immature Granulocytes % 0.3 % (0-4); Lymphocytes # 1.7 K/mcL (0.6-4.6); Lymphocytes % 16.9 %; Mean Corpuscular Hemoglobin 31.8 pg (28.0-33.3); Mean Corpuscular Volume 96.2 fL (83.0-100.0); Mean Platelet Volume 10.9 fL (9.4-12.4); Monocytes # 0.9 K/mcL (0.0-1.3); Monocytes % 8.8 %; Neutrophils # 7.3 K/mcL (1.6-8.9); Platelet Count 175 K/mcL (140-400); Red Blood Count 3.46 M/mcL (3.82-4.97); Red Cell Distribution Width 13.5 % (11.5-14.5); Segmented Neutrophils % 73.6 %
[2018-05-23 04:52] LABS: Alanine Aminotransferase 68 Units/L (7-52); Albumin 3.2 g/dL (3.5-5.7); Albumin/Globulin Ratio 1.5 (1.1-2.2); Alkaline Phosphatase 135 Units/L (34-104); Aspartate Amino Transferase 47 Units/L (13-39); BUN/Creatinine Ratio 11 (6-26); Bilirubin,Direct 0.9 mg/dL (0.0-0.2); Bilirubin,Indirect 0.7 mg/dL (0.0-1.2); Bilirubin,Total 1.6 mg/dL (0.3-1.0); Blood Urea Nitrogen 7 mg/dL (6-20); Calcium 8.2 mg/dL (8.6-10.3); Carbon Dioxide 23 mEq/L (23-29); Chloride 109 mEq/L (98-107); Globulin 2.2 g/dL (2.4-3.5); Glucose 83 mg/dL (70-105); Magnesium 1.6 mg/dL (1.6-2.6); Osmolality,Calculated 283 (280-300); Phosphorous 2.7 mg/dL (2.7-4.5); Potassium 3.5 mEq/L (3.5-5.1); Sodium 138 mEq/L (136-145); Total Protein 5.4 g/dL (6.4-8.9); eGFR For Non-African Americans > 60 (> 60)
[2018-05-23 05:07] LABS: Hepatitis A Antibody IgM Nonreactive (Nonreactive); Hepatitis B Core IgM Nonreactive (Nonreactive); Hepatitis C Virus Antibody Nonreactive (Nonreactive)
[2018-05-23] MEDS: Ketorolac 15 MG/ML VIAL IVP SCH (05:29)
[2018-05-23] MEDS: 0.9 % Sodium Chloride 1,000 ML IVC SCH ×3 (07:53→20:04)
[2018-05-23] MEDS: Acetaminophen IV 1,000 MG/100 ML INFUS..BTL IVPB SCH ×3 (07:55→18:37)
[2018-05-23] MEDS: Pantoprazole 40 MG VIAL IVP SCH (08:00)
[2018-05-23] MEDS: Piperacillin/Tazobactam 3.375 GM in 0.9 % Sodium Chloride Mini Bag 100 ML IVPB SCH ×2 (08:01→18:37)
[2018-05-23] MEDS: Nicotine 21 MG PATCH.TD24 TD SCH (08:02)
--- NOTE | 2018-05-23 09:46 | General Surgery Progress Note ---
Date of Encounter: 05/23/18 Time of Encounter: 09:30 - Assessment and Plan (1) Abdominal pain Current Visit: Yes Status: Acute Pain is most consistent with symptomatic cholelithiasis Plan for laparoscopic cholecystectomy, possible open, possible cholangiogram in the next [address] Campa NPO IV fluids IV antibiotics- Zosyn for borderline gallbladder wall thickening Supportive care and pain control IS every 1 hour while awake PPI therapy daily Ambulate hallways TID Repeat am labs- LFTs, Lipase Qualifiers: Abdominal location: epigastric Qualified Code(s): R10.13 - Epigastric pain (2) Elevated LFTs Current Visit: Yes Status: Acute Improving Repeat am labs Hepatitis panel negative (3) Smoking addiction Current Visit: Yes Status: Acute Smoking cessation educations Nicotine patch (4) DVT prophylaxis Current Visit: Yes Status: Acute EPCDs to bilateral lower extremities for DVT prophylaxis Ambulate hallways TID with assistance Subjective Patient reports: no new complaints, feels better, still having pain, pain is less, voiding w/o difficulty, no flatus, no bowel movement, afebrile Objective Vital Signs - Last 8 Hours Temp Pulse Resp BP Pulse Ox 05/23/18 04:58 98.1 F 106 13 111/75 93 Intake and Output 05/22/18 05/23/18 05/23/18 23:59 07:59 15:59 Intake Total 1100 / 1100 1100 / 1100 100 / 100 Output Total 0 / 0 Balance 1100 / 1100 1100 / 1100 100 / 100 Intake: IV Fluids 1100 / 1100 1100 / 1100 100 / 100 0.9 % Sodium Chloride 1,000 ML 1000 / 1000 1000 / 1000 @ 125 mls/hr IVC .Q8H [facility] Rx#: [id number] Ofirmev 1,000 mg/100 ml 1,000 100 / 100 mg In 100 ml @ 400 mls/hr IVPB Q6HR [facility] Rx#:[id number] Zosyn 3.375 GM In 0.9 % Sodium 100 / 100 100 / 100 Chloride (Mini-Bag +) 100 ML @ 25 mls/hr IVPB Q8HR [facility] Rx#: [id number] Oral 0 / 0 Output: Urine 0 / 0 Other: Meal NPO DINNER - General physical appearance well developed, well nourished, no distress - Eyes normal ocular movement - ENT normal mucosa, atraumatic, normocephalic - Neck Neck exam: trachea midline - Respiratory normal respiratory effort, clear to auscultation - Cardiovascular Cardiovascular exam: Present: tachycardia - Abdomen Abdomen: Present: bowel sounds present, soft, tender Abdominal Tenderness: epigastic, RUQ - Neurologic CN 2-12 grossly intact - Psychiatric oriented to time, oriented to person, oriented to place, speech is normal, memory intact - Labs 05/23/18 03:31 05/23/18 03:31 Diabetes panel 05/23/18 Range/Units 03:31 Sodium 138 (136-145) mEq/L Potassium 3.5 (3.5-5.1) mEq/L Chloride 109 H (98-107) mEq/L Carbon Dioxide 23 (23-29) mEq/L BUN 7 (6-20) mg/dL Creatinine 0.63 (0.60-1.20) mg/dL Glucose 83 (70-105) mg/dL Calcium 8.2 L (8.6-10.3) mg/dL AST 47 H (13-39) Units/L ALT 68 H (7-52) Units/L Alkaline Phosphatase 135 H (34-104) Units/L Albumin 3.2 L (3.5-5.7) g/dL Calcium panel 05/23/18 Range/Units 03:31 Calcium 8.2 L (8.6-10.3) mg/dL Phosphorus 2.7 (2.7-4.5) mg/dL Albumin 3.2 L (3.5-5.7) g/dL Pituitary panel 05/23/18 Range/Units 03:31 Sodium 138 (136-145) mEq/L Potassium 3.5 (3.5-5.1) mEq/L Chloride 109 H (98-107) mEq/L Carbon Dioxide 23 (23-29) mEq/L BUN 7 (6-20) mg/dL Creatinine 0.63 (0.60-1.20) mg/dL Glucose 83 (70-105) mg/dL Calcium 8.2 L (8.6-10.3) mg/dL Adrenal panel 05/23/18 Range/Units 03:31 Sodium 138 (136-145) mEq/L Potassium 3.5 (3.5-5.1) mEq/L Chloride 109 H (98-107) mEq/L Carbon Dioxide 23 (23-29) mEq/L BUN 7 (6-20) mg/dL Creatinine 0.63 (0.60-1.20) mg/dL Glucose 83 (70-105) mg/dL Calcium 8.2 L (8.6-10.3) mg/dL Total Bilirubin 1.6 H (0.3-1.0) mg/dL AST 47 H (13-39) Units/L ALT 68 H (7-52) Units/L Alkaline Phosphatase 135 H (34-104) Units/L Albumin 3.2 L (3.5-5.7) g/dL - VTE Reasons for not Prescribing Prophylaxis: Treatment not Indicated - Low risk for VTE Consult Discharge Plan - Plan Referrals: NONE,PCP [Primary Care Provider] - - Attending Attestation For this encounter, I have reviewed the SPECIAL EDUCATION ASSOCIATE or PA documentation, treatment plan, and medical decision making; and I have had face to face time with this patient.
[2018-05-23] MEDS: OXYCODONE Oral CONC 10 MG/0.5 ML ORAL.SYG SL PRN (10:16)
[2018-05-23] MEDS ORDERED: *HR* FentaNYL (PF) 100 MCG/2 ML VIAL ONE ×2 (15:44→16:45)
[2018-05-23] MEDS ORDERED: *HR* Midazolam HCl 2 MG/2 ML VIAL ONE (15:44)
[2018-05-23] MEDS ORDERED: *HR* Propofol 200 MG/20 ML VIAL IVP ONE (15:44)
[2018-05-23] MEDS ORDERED: Lidocaine -MPF 2% 2 ML VIAL ONE (15:46)
[2018-05-23] MEDS ORDERED: *HR* Rocuronium Bromide 50 MG/5 ML VIAL ONE (15:46)
--- NOTE | 2018-05-23 16:07 | Anesthesia Evaluation PreOp ---
Date of Encounter: 05/23/18 Time of Encounter: 16:03 - Past History Planned Operation: LAP CHOLECYSTECTOMY, IOC Cardiac History: Denies any Significant Hx Pulmonary History: Smoker PREPRESS OPERATOR History: Denies Any Significant HX Other Medical History: Hepatic (ELEVATED LFTs) Anesthesia History: No Prior Anesthetic Complications, Past Anesthesia ( HYSTERECTOMY) Alcohol Use: rarely Drug use: none Medications and Allergies Ibuprofen [Motrin] 800 mg PO Q8HR #100 tablet 05/10/16 [Rx] Cyclobenzaprine [Flexeril] 10 mg PO TID PRN #20 tablet 05/09/18 [Rx] 3 Allergy/AdvReac Type Severity Reaction Status Date / Time No Known Allergies Allergy Verified 05/21/18 11:00 - Meds/Allergy Pre-op Review Medications Reviewed: Yes Allergies Reviewed: Yes Beta Blockers on Current Med List: No Anesthesia Results - Labs 05/23/18 03:31 05/23/18 03:31 Laboratory Last Values WBC 9.9 K/mcL (4.3-11.1) 05/23/18 03:31 RBC 3.46 M/mcL (3.82-4.97) L 05/23/18 03:31 Hgb 11.0 g/dL (11.5-15.4) L D 05/23/18 03:31 Hct 33.3 % (35.3-44.9) L 05/23/18 03:31 MCV 96.2 fL (83.0-100.0) 05/23/18 03:31 MCH 31.8 pg (28.0-33.3) 05/23/18 03:31 MCHC 33.0 g/dL (31.6-35.5) 05/23/18 03:31 RDW 13.5 % (11.5-14.5) 05/23/18 03:31 Plt Count 175 K/mcL (140-400) 05/23/18 03:31 MPV 10.9 fL (9.4-12.4) 05/23/18 03:31 Immature Gran % 0.3 % (0-4) 05/23/18 03:31 Seg Neutrophils % 73.6 % 05/23/18 03:31 Lymphocytes % 16.9 % 05/23/18 03:31 Monocytes % 8.8 % 05/23/18 03:31 Eosinophils % 0.3 % 05/23/18 03:31 Basophils % 0.1 % 05/23/18 03:31 Neutrophils # 7.3 K/mcL (1.6-8.9) 05/23/18 03:31 Lymphocytes # 1.7 K/mcL (0.6-4.6) 05/23/18 03:31 Monocytes # 0.9 K/mcL (0.0-1.3) 05/23/18 03:31 Eosinophils # 0.0 K/mcL (0.0-0.6) 05/23/18 03:31 Basophils # 0.0 K/mcL (0.0-0.2) 05/23/18 03:31 Sodium 138 mEq/L (136-145) 05/23/18 03:31 Potassium 3.5 mEq/L (3.5-5.1) 05/23/18 03:31 Chloride 109 mEq/L (98-107) H 05/23/18 03:31 Carbon Dioxide 23 mEq/L (23-29) 05/23/18 03:31 BUN 7 mg/dL (6-20) 05/23/18 03:31 Creatinine 0.63 mg/dL (0.60-1.20) 05/23/18 03:31 Est GFR ( Amer) > 60 (> 60) 05/23/18 03:31 Est GFR (Non-Af Amer) > 60 (> 60) 05/23/18 03:31 BUN/Creatinine Ratio 11 (6-26) 05/23/18 03:31 Glucose 83 mg/dL (70-105) 05/23/18 03:31 POC Glucose 83 mg/dL (70-99) 05/23/18 11:30 Calculated Osmolality 283 (280-300) 05/23/18 03:31 Calcium 8.2 mg/dL (8.6-10.3) L 05/23/18 03:31 Phosphorus 2.7 mg/dL (2.7-4.5) 05/23/18 03:31 Magnesium 1.6 mg/dL (1.6-2.6) 05/23/18 03:31 Total Bilirubin 1.6 mg/dL (0.3-1.0) H 05/23/18 03:31 Direct Bilirubin 0.9 mg/dL (0.0-0.2) H 05/23/18 03:31 Indirect Bilirubin 0.7 mg/dL (0.0-1.2) 05/23/18 03:31 AST 47 Units/L (13-39) H 05/23/18 03:31 ALT 68 Units/L (7-52) H 05/23/18 03:31 Alkaline Phosphatase 135 Units/L (34-104) H 05/23/18 03:31 Serum Total Protein 5.4 g/dL (6.4-8.9) L 05/23/18 03:31 Albumin 3.2 g/dL (3.5-5.7) L 05/23/18 03:31 Globulin 2.2 g/dL (2.4-3.5) L 05/23/18 03:31 Albumin/Globulin Ratio 1.5 (1.1-2.2) 05/23/18 03:31 Lipase 28 Units/L (11-82) 05/20/18 22:42 Ur Specimen Adequacy See below A 05/20/18 21:56 Urine Color Scurry (Yellow) A 05/20/18 21:56 Urine Clarity Turbid (Clear) A 05/20/18 21:56 Urine pH 5.5 pH Units (5.0-8.0) 05/20/18 21:56 Ur Specific [place] > 1.030 (1.010-1.025) H 05/20/18 21:56 Urine Protein 30 mg/dL (Neg-Trace) H 05/20/18 21:56 Urine Glucose (UA) Normal mg/dL (Normal) 05/20/18 21:56 Urine Ketones Trace mg/dL (Negative) H 05/20/18 21:56 Urine Blood Small (Negative) H 05/20/18 21:56 Urine Nitrite Positive (Negative) A 05/20/18 21:56 Urine Bilirubin Moderate (Negative) H 05/20/18 21:56 Urine Urobilinogen Normal mg/dL (Normal) 05/20/18 21:56 Ur Leukocyte Esterase Small (Negative) H 05/20/18 21:56 Urine Microscopic RBC 3-5 per hpf (0-3) H 05/20/18 21:56 Urine Microscopic WBC 0-3 per hpf (0-3) 05/20/18 21:56 Ur Squamous Epith Cells Moderate per lpf (None-Few) H 05/20/18 21:56 Calcium Oxalate Crystal Present 05/20/18 21:56 Amorphous Sediment Many (Few) H 05/20/18 21:56 Urine Bacteria Moderate per hpf (None-Few) H 05/20/18 21:56 Hyaline Casts None Seen per lpf (None-Few) 05/20/18 21:56 Ur Culture Indicated? YES (NO) A 05/20/18 21:56 Urine Test Negative (Negative) 05/23/18 14:18 Hepatitis A IgM Ab Nonreactive (Nonreactive) 05/21/18 01:14 Hep Bs Antigen Nonreactive (Nonreactive) 05/21/18 01:14 Hep B Core IgM Ab Nonreactive (Nonreactive) 05/21/18 01:14 Hepatitis C Ab Screen Nonreactive (Nonreactive) 05/21/18 01:14 Anesthesia Exam Vital Signs/O2 Sat, Most Current Temp Pulse Resp BP Pulse Ox 98.4 F 98 14 113/74 93 05/23/18 11:33 05/23/18 11:33 05/23/18 11:33 05/23/18 11:33 05/23/18 11:33 HEIGHT 1.6 m WEIGHT 65 kg BMI 25 NPO (# of Hours): 8 - HEENT Mallampati: I Teeth: Missing (NO UPPER TEETH), Poor dentition Oral Opening: Greater than 3 - Cardiac Rhythm: Regular - Pulmonary Breath Sounds: bilateral Clear Respiratory Effort: Symmetrical - Additional Findings Active Medications Piperacillin Sod/Tazobactam (Sod 3.375 gm/ Sodium Chloride) 100 mls @ 25 mls/ hr IVPB Q8HR [facility] Stop: 11/20/18 08:01 Last Infusion: 05/23/18 12:24 Dose: Infused Sodium Chloride (0.9 % Sodium Chloride) 1,000 mls @ 125 mls/hr IVC .Q8H [facility] Stop: 11/21/18 13:31 Last Admin: 05/23/18 07:53 Dose: 125 mls/hr Acetaminophen (Ofirmev 1,000 Mg/100 Ml) 1,000 mg in 100 mls @ 400 mls/hr IVPB Q6HR [facility] Stop: 11/22/18 07:34 Last Infusion: 05/23/18 12:23 Dose: Infused Lorazepam (Ativan) 1 mg IVP Q6HR PRN PRN Reason: Anxiety Stop: 11/21/18 13:34 Naloxone HCl (Narcan) 0.4 mg IVP Q2MIN PRN PRN Reason: SEE COMMENTS Stop: 11/20/18 03:58 Nicotine (Nicoderm) 21 mg TD DAILY [facility] PRN Reason: Protocol Stop: 11/20/18 09:31 Last Admin: 05/23/18 08:02 Dose: Not Given Ondansetron HCl (Zofran) 4 mg IVP Q8HR PRN PRN Reason: Nausea And Vomiting Stop: 11/20/18 03:58 Last Admin: 05/21/18 16:09 Dose: 4 mg Oxycodone HCl (Oxycodone Oral Conc) 10 mg SL Q4H PRN; Protocol PRN Reason: Pain 6-10 Stop: 11/21/18 11:22 Last Admin: 05/23/18 10:16 Dose: 10 mg Oxycodone HCl (Oxycodone Oral Conc) 5 mg SL Q4H PRN; Protocol PRN Reason: Pain 1-5 Stop: 11/20/18 03:58 Pantoprazole Sodium (Protonix) 40 mg IVP [facility]ILY [facility] Stop: 11/21/18 09:01 Last Admin: 05/23/18 08:00 Dose: 40 mg Promethazine HCl (Phenergan) 12.5 mg IVP Q6HR PRN PRN Reason: Nausea And Vomiting Stop: 11/20/18 09:49 Anesthesia Assess/Plan ASA Score: 2 Modified [place] Scale for Level of Consciousness: Cooperative, oriented, and tranquil Anesthetic Plan: General Monitoring Plan: Standard Monitors Recovery Plan: PACU Anes Supervising Prov Stmt: Patient informed and consented. Risks, benefits, and alternatives discussed. Patient wishes to proceed.
[2018-05-23] MEDS ORDERED: Isovue-300 50 ML VIAL IVP ONE (16:15)
[2018-05-23] MEDS ORDERED: *HR* Promethazine 25 MG/ML VIAL IVP PRN ×2 (16:41→19:30)
[2018-05-23] MEDS ORDERED: *HR* HYDROmorphone (PF) 1 MG/ML SYRINGE IVP PRN (16:41)
[2018-05-23] MEDS ORDERED: Ketorolac 30 MG/ML VIAL ONE (16:45)
[2018-05-23] MEDS ORDERED: Dexamethasone 4 MG/ML VIAL ONE (17:06)
[2018-05-23] MEDS ORDERED: Ondansetron 4 MG/2 ML VIAL ONE (17:06)
[2018-05-23] MEDS ORDERED: *HR* Morphine 10 MG/ML VIAL ONE (17:07)
[2018-05-23] MEDS ORDERED: Neostigmine Methylsulfate 3 MG/3 ML SYRINGE ONE (18:09)
[2018-05-23] MEDS ORDERED: ROPIVACAINE HCL/PF 0.5% 30 ML VIAL ONE (18:15)
[2018-05-23] MEDS ORDERED: Water for inj. (sterile) 30 ML IV ONE (18:19)
--- NOTE | 2018-05-23 18:36 | Operative Note ---
Date of procedure: 05/23/18 Pre-op diagnosis: Symptomatic cholelithiasis Post-op diagnosis: other (Gangrenous cholecystitis with bile peritonitis) Procedure: Laparoscopic converted to open cholecystectomy Complications: none immediate Anesthesia: GETA Surgeon: Anna Campa Was there an apartment community assistant manager present: Yes [employer]: Oumou Colón Estimated blood loss (cc): 100 Specimen: gallbladder and contents Condition: stable Disposition: PACU Procedure in Detail: The patient was brought into the operating suite and placed supine on the operating table. Sign-in was performed and everyone was in agreement. Anesthesia was induced and patient was endotracheally intubated by anesthesia without incident and they also placed an OG tube. The abdomen was prepped and draped in the usual sterile fashion. A timeout was performed again everyone was in agreement. A supraumbilical incision was made through the skin into the subcutaneous tissue with an 11 blade. Towel clamps were placed on either side of the umbilicus for retraction. S retractors were used to dissect down to the anterior abdominal wall linea alba fascia. A Veress needle was placed through this incision and a water drop test confirmed placement and the abdomen was insufflated. The abdomen was entered with a 5 mm 0 degree laparoscope on a 5 mm X-mic trocar. The area and entry was visualized was no bleeding and no apparent bowel injury. A 5 mm subxiphoid port was placed under direct visualization after first incising the skin with an 11 blade. A right upper quadrant subcostal position midclavicular line 5 mm port was placed under direct visualization after first incising skin with 11 blade. The laparoscope was placed in this and we exchanged the supraumbilical port for a 12 mm port under direct visualization. The last 5 mm port was placed in the right upper quadrant subcostal position anterior axillary line after first incising the skin with an 11 blade. The patient was placed in steep reverse Trendelenburg left side down position. The dome of the gallbladder was grasped and retracted cephalad. There was bile throughout the abdomen. There was significant inflammation of the duodenum, raissa hepatis, infundibulum of the gallbladder. The medial aspect of the body of the gallbladder was gangrenous and necrotic. The decision to convert to open was made and the air evacuated from the abdomen and trochars removed. The patient was taken out of reverse Trendelenburg and put in supine position. A midline incision through the skin into the subcutaneous tissue was made beginning at the xiphoid carried down to the umbilicus. We dissected through the subcutaneous tissue to the anterior abdominal wall linea alba fascia with the Bovie. [place]'s are placed on either side of the fascia for retraction and the abdomen was entered with the Bovie. Bile was suctioned from the abdomen. A Bookwalter was placed for exposure and retraction. The dome of the gallbladder was grasped with a Darek. The gallbladder was taken down off the cystic plate in a dome down fashion with the Bovie. Using a right angle the cystic artery and cystic duct was dissected out and 5 mm hemoclips were placed proximally on each structure and transected with Metzenbaum scissors. The gallbladder was placed off to the back table for pathology. The right upper quadrant was irrigated with sterile saline. The anterior aspect of the duodenum first, second portion were evaluated and although there was inflammation there did not appear to be any bile leak from this area, or perforation. The abdomen was copiously irrigated with several liters of sterile saline. A 19-Citizen Of [place] Juan drain was placed through the right lateralmost 5 mm port site and secured to the skin with a 2-0 silk stitch. The Juan drain was placed underneath the liver edge at the gallbladder fossa. [place]'s are placed on either side of the fascia for retraction and the midline fascia was closed with 2 separate #1 non-looped PDS running stitches meeting in the middle. The subcutaneous tissue was irrigated with sterile saline. The subcutaneous tissue was reapproximated with 3-0 Vicryl interrupted stitches. The skin was closed with bertin. To the 5 mm port sites were closed with bertin. 4 x 4 gauze and Medipore tape were applied to the midline wound as a dressing. A Band-Aid was placed to the right 5 mm trocar site. Drain sponge was placed at the Juan drain site. All lap and instrument counts were correct at the end of the case. The patient was awoken by anesthesia after a tap block was performed by anesthesia. She was extubated in the OR and taken to PACU in stable condition.
--- NOTE | 2018-05-23 19:13 | Anesthesia Evaluation Post Op ---
Date of Encounter: 05/23/18 Time of Encounter: 19:13 - Discharge PostOp Status: Transfer Patient to floor (Patient's vital signs have been reviewed. Patient is stable postoperatively and has adequately recovered from anesthesia. Patient is determined to have stable airway patency and respiratory function including respiratory rate and oxygen saturation. Patient has a stable heart rate, blood pressure and adequate hydration. Patients mental status is acceptable. Patients temperature is appropriate. Pain and nausea are adequately controlled.)
[2018-05-23] MEDS ORDERED: *HR* HYDROmorphone 20 MG/20 ML PCA IVC PRN (19:30)
[2018-05-23] MEDS ORDERED: Naloxone 0.4 MG/ML INJ IVP PRN (19:30)
[2018-05-24] MEDS: Piperacillin/Tazobactam 3.375 GM in 0.9 % Sodium Chloride Mini Bag 100 ML IVPB SCH ×4 (00:37→23:41)
[2018-05-24] MEDS: Acetaminophen IV 1,000 MG/100 ML INFUS..BTL IVPB SCH ×5 (02:07→23:31)
[2018-05-24 04:19] LABS: Hematocrit 34.4 % (35.3-44.9); Hemoglobin 11.3 g/dL (11.5-15.4); Immature Granulocytes % 0.6 % (0-4); Lymphocytes # 0.6 K/mcL (0.6-4.6); Lymphocytes % 4.1 %; Mean Corpuscular HGB Conc 32.8 g/dL (31.6-35.5); Mean Corpuscular Hemoglobin 32.3 pg (28.0-33.3); Mean Corpuscular Volume 98.3 fL (83.0-100.0); Mean Platelet Volume 11.2 fL (9.4-12.4); Monocytes % 3.5 %; Neutrophils # 14.2 K/mcL (1.6-8.9); Platelet Count 171 K/mcL (140-400); Red Cell Distribution Width 13.4 % (11.5-14.5); Segmented Neutrophils % 91.8 %
[2018-05-24 04:21] LABS: Monocytes # 0.5 K/mcL (0.0-1.3)
[2018-05-24 04:45] LABS: BUN/Creatinine Ratio 13 (6-26); Blood Urea Nitrogen 7 mg/dL (6-20); Calcium 8.3 mg/dL (8.6-10.3); Carbon Dioxide 21 mEq/L (23-29); Chloride 108 mEq/L (98-107); Glucose 86 mg/dL (70-105); Magnesium 1.7 mg/dL (1.6-2.6); Osmolality,Calculated 283 (280-300); Phosphorous 3.9 mg/dL (2.7-4.5); Potassium 4.3 mEq/L (3.5-5.1); Sodium 138 mEq/L (136-145); eGFR For Non-African Americans > 60 (> 60)
[2018-05-24] MEDS: 0.9 % Sodium Chloride 1,000 ML IVC SCH ×3 (07:16→23:42)
[2018-05-24 07:41] LABS: Alanine Aminotransferase 56 Units/L (7-52); Albumin/Globulin Ratio 1.3 (1.1-2.2); Alkaline Phosphatase 130 Units/L (34-104); Aspartate Amino Transferase 63 Units/L (13-39); Bilirubin,Direct 0.5 mg/dL (0.0-0.2); Bilirubin,Indirect 0.5 mg/dL (0.0-1.2); Globulin 2.4 g/dL (2.4-3.5); Lipase 109 Units/L (11-82); Total Protein 5.4 g/dL (6.4-8.9)
[2018-05-24] MEDS: Pantoprazole 40 MG VIAL IVP SCH (09:20)
[2018-05-24] MEDS: Nicotine 21 MG PATCH.TD24 TD SCH (09:33)
--- NOTE | 2018-05-24 09:35 | General Surgery Progress Note ---
Date of Encounter: 05/24/18 Time of Encounter: 09:32 - Assessment and Plan (1) Elevated LFTs Current Visit: Yes Status: Acute improved, monitor (2) Smoking addiction Current Visit: Yes Status: Acute ok nicotine patch (3) Gangrenous cholecystitis Current Visit: Yes Status: Acute pt s/p open cholecystectomy for gangrenous cholecystitis start clears continue dilaudid can dryer prn antiemetics OOB to chair with meals pulmonary toilet/IS gi/dvt prophylaxis SE with serosang output Subjective Patient reports: no new complaints, feels better, pain is less, flatus, no bowel movement, afebrile Objective Vital Signs - Last 8 Hours Temp Pulse Resp BP Pulse Ox 05/24/18 08:03 98.2 F 84 14 95/62 94 05/24/18 03:51 98.1 F 81 14 98/68 95 Intake and Output 05/23/18 05/24/18 05/24/18 23:59 07:59 15:59 Intake Total 200 / 200 Output Total 245 / 245 55 / 55 Balance -245 / -245 145 / 145 Intake: IV Fluids 200 / 200 Ofirmev 1,000 mg/100 ml 1,000 100 / 100 mg In 100 ml @ 400 mls/hr IVPB Q6HR [facility] Rx#:[id number] Zosyn 3.375 GM In 0.9 % Sodium 100 / 100 Chloride (Mini-Bag +) 100 ML @ 25 mls/hr IVPB Q8HR [facility] Rx#: [id number] Oral 0 / 0 Output: Urine 0 / 0 Estimated Blood Loss 100 / 100 Wound Drainage 145 / 145 55 / 55 Abdomen 75 / 75 55 / 55 Other: Meal NPO DINNER Percent of Meal Consumed 0% # Voids 1 1 # Bowel Movements 0 Weight 64.5 kg Blood Glucose* 99 Patient Weight 05/24/18 23:59 Weight 64.5 kg - General physical appearance well developed, well nourished, no distress - Eyes PERRL, normal ocular movement - ENT normal mucosa, atraumatic - Neck Neck exam: trachea midline - Respiratory normal expansion, normal respiratory effort - Cardiovascular Cardiovascular exam: Present: RRR - Abdomen Abdomen: Present: bowel sounds present, soft, tender (appropriate post op tenderness) - Incision Incision: Present: clean and dry, intact - Integumentary no rash - Neurologic CN 2-12 grossly intact - Musculoskeletal normal posture - Psychiatric oriented to time, oriented to person, oriented to place, speech is normal, memory intact - Labs 05/24/18 03:39 05/24/18 03:39 Short CBC 05/24/18 Range/Units 03:39 WBC 15.5 H D (4.3-11.1) K/mcL Hgb 11.3 L (11.5-15.4) g/dL Hct 34.4 L (35.3-44.9) % Plt Count 171 (140-400) K/mcL Neutrophils # 14.2 H (1.6-8.9) K/mcL BMP 05/24/18 Range/Units 03:39 Sodium 138 (136-145) mEq/L Potassium 4.3 (3.5-5.1) mEq/L Chloride 108 H (98-107) mEq/L Carbon Dioxide 21 L (23-29) mEq/L BUN 7 (6-20) mg/dL Creatinine 0.54 L (0.60-1.20) mg/dL Glucose 86 (70-105) mg/dL Calcium 8.3 L (8.6-10.3) mg/dL Liver Function 05/24/18 Range/Units 03:39 Total Bilirubin 1.0 (0.3-1.0) mg/dL Direct Bilirubin 0.5 H (0.0-0.2) mg/dL AST 63 H (13-39) Units/L ALT 56 H (7-52) Units/L Alkaline Phosphatase 130 H (34-104) Units/L Albumin 3.0 L (3.5-5.7) g/dL Vital Signs Temp Pulse Resp BP Pulse Ox 05/24/18 08:03 98.2 F 84 14 95/62 94 05/24/18 03:51 98.1 F 81 14 98/68 95 05/24/18 00:39 98.1 F 78 16 102/67 96 05/23/18 22:50 98.1 F 16 100/64 05/23/18 22:48 98.1 F 71 16 100/64 05/23/18 21:10 98.2 F 80 16 109/70 96 05/23/18 20:11 97.7 F 16 102/66 95 05/23/18 19:58 97.9 F 73 17 95/56 94 05/23/18 19:26 97.9 F 75 16 93/58 93 05/23/18 19:05 97.8 F 83 16 102/68 94 05/23/18 18:55 88 16 96/65 97 05/23/18 18:45 86 12 98/66 97 05/23/18 18:35 98.7 F 95 10 108/72 92 05/23/18 11:33 98.4 F 98 14 113/74 93 Intake and Output 05/23/18 05/24/18 05/24/18 23:59 07:59 15:59 Intake Total 200 / 200 Output Total 245 / 245 55 / 55 Balance -245 / -245 145 / 145 Intake: IV Fluids 200 / 200 Ofirmev 1,000 mg/100 ml 1,000 100 / 100 mg In 100 ml @ 400 mls/hr IVPB Q6HR [facility] Rx#:[id number] Zosyn 3.375 GM In 0.9 % Sodium 100 / 100 Chloride (Mini-Bag +) 100 ML @ 25 mls/hr IVPB Q8HR [facility] Rx#: [id number] Oral 0 / 0 Output: Urine 0 / 0 Estimated Blood Loss 100 / 100 Wound Drainage 145 / 145 55 / 55 Abdomen 75 / 75 55 / 55 Other: Meal NPO DINNER Percent of Meal Consumed 0% # Voids 1 1 # Bowel Movements 0 Weight 64.5 kg Blood Glucose* 99 Patient Weight 05/24/18 23:59 Weight 64.5 kg - VTE Reasons for not Prescribing Prophylaxis: Treatment not Indicated - Low risk for VTE Consult Discharge Plan - Plan Referrals: NONE,PCP [Primary Care Provider] -
[2018-05-24] MEDS: Ondansetron 4 MG/2 ML VIAL IVP PRN (09:56)
[2018-05-24] MEDS: *HR* Heparin 5,000 UNIT/ML VIAL SQ SCH (17:49)
[2018-05-25 04:44] LABS: Basophils % 0.2 %; Eosinophils % 0.2 %; Hematocrit 29.8 % (35.3-44.9); Hemoglobin 9.8 g/dL (11.5-15.4); Immature Granulocytes % 0.5 % (0-4); Lymphocytes # 1.7 K/mcL (0.6-4.6); Lymphocytes % 14.2 %; Mean Corpuscular HGB Conc 32.9 g/dL (31.6-35.5); Mean Corpuscular Volume 97.4 fL (83.0-100.0); Mean Platelet Volume 11.2 fL (9.4-12.4); Monocytes # 0.7 K/mcL (0.0-1.3); Monocytes % 5.7 %; Neutrophils # 9.7 K/mcL (1.6-8.9); Platelet Count 186 K/mcL (140-400); Red Blood Count 3.06 M/mcL (3.82-4.97); Red Cell Distribution Width 13.6 % (11.5-14.5); Segmented Neutrophils % 79.2 %
[2018-05-25 04:55] LABS: Alanine Aminotransferase 37 Units/L (7-52); Albumin 2.8 g/dL (3.5-5.7); Albumin/Globulin Ratio 1.2 (1.1-2.2); Alkaline Phosphatase 115 Units/L (34-104); Aspartate Amino Transferase 36 Units/L (13-39); BUN/Creatinine Ratio 11 (6-26); Bilirubin,Direct 0.4 mg/dL (0.0-0.2); Bilirubin,Indirect 0.4 mg/dL (0.0-1.2); Bilirubin,Total 0.8 mg/dL (0.3-1.0); Blood Urea Nitrogen 6 mg/dL (6-20); Calcium 8.3 mg/dL (8.6-10.3); Carbon Dioxide 26 mEq/L (23-29); Chloride 110 mEq/L (98-107); Globulin 2.3 g/dL (2.4-3.5); Glucose 97 mg/dL (70-105); Osmolality,Calculated 288 (280-300); Potassium 3.7 mEq/L (3.5-5.1); Sodium 140 mEq/L (136-145); Total Protein 5.1 g/dL (6.4-8.9); eGFR For Non-African Americans > 60 (> 60)
[2018-05-25] MEDS: *HR* Heparin 5,000 UNIT/ML VIAL SQ SCH ×2 (05:58→17:18)
[2018-05-25] MEDS: Acetaminophen IV 1,000 MG/100 ML INFUS..BTL IVPB SCH ×4 (05:58→23:53)
[2018-05-25] MEDS ORDERED: *HR* OxyCODONE/APAP 5/325 TABLET PO PRN (08:55)
--- NOTE | 2018-05-25 09:02 | General Surgery Progress Note ---
<Isabel Ferrell - Last Filed: 05/25/18 09:00> Date of Encounter: 05/25/18 Time of Encounter: 09:00 - Assessment and Plan (1) Gangrenous cholecystitis Status: Acute Date of procedure: 05/23/18 Pre-op diagnosis: Symptomatic cholelithiasis Post-op diagnosis: other (Gangrenous cholecystitis with bile peritonitis) Procedure: Laparoscopic converted to open cholecystectomy Complications: none immediate Anesthesia: GETA Surgeon: Anna Campa POD #2 as above. Pathology remains pending. Exam is as expected. Thalia states she feels over sedated and request the RES COUNSELOR be stopped, she would like to take a shower, she states overall she is feeling much better. She is tolerating her diet without nausea or vomiting. Her white blood cell count is down trending 15.5>>12.3 she is afebrile and her vital signs are stable. Plan: d/c RES COUNSELOR Add scheduled ibuprofem home prn felxeril, prn percocet Ambulate TID OOB to chair for all eals Conintue aggressive pulmonary toileting pt may shower (do not let SE dangle from the body. Suspend on a lanyard. may leave midline open to air or covered according to patient preference. SE drain education Continue IV ATBX for 24-48 hours pending clinical course (2) Smoking addiction Status: Acute Nicotine patch aggressive pulmonary toileting duonebs (3) DVT prophylaxis Status: Acute Ambulate and halls TID out of bed to chair for all meals EP CDs heparin 5000 units sub Q Subjective Patient reports: feels better, pain is less, tolerating liquids well, voiding w/ o difficulty, flatus, bowel movement, afebrile Narrative: Thalia reports she has no pain and is feeling over sedated. She requests that the RES COUNSELOR be stopped. Objective Vital Signs - Last 8 Hours Temp Pulse Resp BP Pulse Ox 05/25/18 07:13 98.2 F 90 16 109/62 92 05/25/18 05:25 98.2 F 98 16 103/69 93 Intake and Output 05/24/18 05/25/18 05/25/18 23:59 07:59 15:59 Intake Total 1820 / 1820 800 / 800 100 / 100 Output Total 250 / 250 680 / 680 Balance 1570 / 1570 120 / 120 100 / 100 Intake: IV Fluids 1400 / 1400 100 / 100 100 / 100 0.9 % Sodium Chloride 1,000 ML 1000 / 1000 @ 90 mls/hr IVC .[id number] [facility] Rx# :[id number] Ofirmev 1,000 mg/100 ml 1,000 300 / 300 100 / 100 mg In 100 ml @ 400 mls/hr IVPB Q6HR [facility] Rx#:[id number] Zosyn 3.375 GM In 0.9 % Sodium 100 / 100 100 / 100 Chloride (Mini-Bag +) 100 ML @ 25 mls/hr IVPB Q8HR [facility] Rx#: [id number] Oral 420 / 420 700 / 700 Output: Urine 250 / 250 600 / 600 Wound Drainage 80 / 80 Abdomen 80 / 80 Other: Weight 64 kg Patient Weight 05/25/18 23:59 Weight 64 kg VITAL SIGNS: Reviewed. See [facility] GENERAL: In no apparent distress. HEENT: Normocephalic, atraumatic, pupils are equal and reactive, extraocular motions intact, oropharynx is pink and moist, there is no neck adenopathy or JVD noted. CHEST/RESPIRATORY: The thorax is free from signs of trauma. Lung sounds: clear to auscultation, normal respiratory effort CARDIAC: Regular rate and rhythm. Normal S1 and S2, without murmurs, gallops, or rubs. VASCULAR: No Edema. 2+ peripheral pulses. ABDOMEN: soft, expected postoperative tenderness, hypoactive bowel sounds, minimal amount of postsurgical edema INCISION: Surgical incision is clean, dry, and intact. There are no signs of cellulitis or infection noted. WOUNDS/DRAINS: SE drain is with sero-sanguineous drainage. MUSCULOSKELETAL: Good range of motion of all major joints. Extremities without clubbing, cyanosis or edema. NEUROLOGIC EXAM: Alert and oriented x 3. Speech normal. Follows commands. PSYCHIATRIC: Mood normal. SKIN: No rash or lesions. - Labs 05/25/18 03:31 05/25/18 03:31 Diabetes panel 05/25/18 Range/Units 03:31 Sodium 140 (136-145) mEq/L Potassium 3.7 (3.5-5.1) mEq/L Chloride 110 H (98-107) mEq/L Carbon Dioxide 26 (23-29) mEq/L BUN 6 (6-20) mg/dL Creatinine 0.57 L (0.60-1.20) mg/dL Glucose 97 (70-105) mg/dL Calcium 8.3 L (8.6-10.3) mg/dL AST 36 (13-39) Units/L ALT 37 (7-52) Units/L Alkaline Phosphatase 115 H (34-104) Units/L Albumin 2.8 L (3.5-5.7) g/dL Calcium panel 05/25/18 Range/Units 03:31 Calcium 8.3 L (8.6-10.3) mg/dL Albumin 2.8 L (3.5-5.7) g/dL Pituitary panel 05/25/18 Range/Units 03:31 Sodium 140 (136-145) mEq/L Potassium 3.7 (3.5-5.1) mEq/L Chloride 110 H (98-107) mEq/L Carbon Dioxide 26 (23-29) mEq/L BUN 6 (6-20) mg/dL Creatinine 0.57 L (0.60-1.20) mg/dL Glucose 97 (70-105) mg/dL Calcium 8.3 L (8.6-10.3) mg/dL Adrenal panel 05/25/18 Range/Units 03:31 Sodium 140 (136-145) mEq/L Potassium 3.7 (3.5-5.1) mEq/L Chloride 110 H (98-107) mEq/L Carbon Dioxide 26 (23-29) mEq/L BUN 6 (6-20) mg/dL Creatinine 0.57 L (0.60-1.20) mg/dL Glucose 97 (70-105) mg/dL Calcium 8.3 L (8.6-10.3) mg/dL Total Bilirubin 0.8 (0.3-1.0) mg/dL AST 36 (13-39) Units/L ALT 37 (7-52) Units/L Alkaline Phosphatase 115 H (34-104) Units/L Albumin 2.8 L (3.5-5.7) g/dL - VTE Reasons for not Prescribing Prophylaxis: Treatment not Indicated - Low risk for VTE Consult Discharge Plan - Plan Instructions: Imtiaz-Odonnell Drain Care (DC), Open Cholecystectomy (DC) Additional Instructions: General Surgical Discharge Instructions 1. No pushing, pulling, or lifting greater than 15 lbs for 2-4 weeks (depending upon procedure). 2. You may shower beginning today, but no tub baths, soaking, or swimming for 2 weeks. 3. You may resume driving when you are off narcotics and are safe to react in a car. 4. Take ibuprofen every 8 hours for discomfort. If this does not relieve discomfort, you may take the as needed Percocet. Take narcotics as directed. Do not take more narcotics then directed and do not share your narcotics with any other person. Do not drink alcohol while on narcotics. 5. Take stool softeners (Colace) or a water based laxative (Miralax) while taking narcotics. You may hold for loose stools. 6. Report any fevers greater than 100.5F, increase abdominal discomfort, drainage that looks like pus, increased redness or pain at the surgical site, or any vomiting. 7. Report any pain in the calves, shortness of breath, or rapid heartbeat. 8. Follow-up in the office as directed. 9. If you were prescribed antibiotics, do not stop them without talking to your provider. Daily SE Drain Care: 1. Remove dressings. Shower with antibacterial soap. 2. Do not let the SE drain dangle from your body. Use the safety pin to secure to your clothing. Secure the SE to a lanyard or other type of long necklace when you shower. 3. Replace drain gauze and taped to secure. 4. Record the output from your SE bulb (at least once daily) on the form provided and bring this with you to your follow-up appointment. 5. Keep the SE drain to suction (squeeze the bulb and replace the cap while squeezing). 6. Strip the lines twice daily (hold onto the line as close to the body as you can, then with the other hand push the contents of the line into the ES bulb). Referrals: Ruby Hoang CNP [Advanced Practice Nurse] - 06/02/18 9:30 am NONE,PCP [Primary Care Provider] - Prescriptions: OxyCODONE/APAP 5/325 [Percocet 5/325 MG] 1 each PO Q4HR PRN 7 Days #28 tablet PRN Reason: Pain Ibuprofen [Motrin] 800 mg PO Q8HR #30 tablet Amoxicillin/Clavulanate [Augmentin] 875 mg PO BIDWM #28 tablet Docusate Sodium [Colace] 100 mg PO BID #30 capsule <Anna Campa - Last Filed: 05/26/18 16:11> Date of Encounter: 05/25/18 - Assessment and Plan (1) Smoking addiction Status: Acute (2) Gangrenous cholecystitis Status: Acute pain controlled well, discussed taking percocet will help toleratid fulls ok to shower continue antibiotics Subjective Patient reports: feels better, still having pain, pain is less, tolerating liquids well, voiding w/o difficulty, flatus, bowel movement, afebrile Objective Vital Signs - Last 8 Hours Pulse Ox 05/26/18 08:15 93 Intake and Output 05/26/18 05/26/18 05/26/18 07:59 15:59 23:59 Intake Total 400 / 400 0 / 0 Output Total 1280 / 1280 Balance -880 / -880 0 / 0 Intake: IV Fluids 300 / 300 Ofirmev 1,000 mg/100 ml 1,000 200 / 200 mg In 100 ml @ 400 mls/hr IVPB Q6HR [facility] Rx#:[id number] Zosyn 3.375 GM In 0.9 % Sodium 100 / 100 Chloride (Mini-Bag +) 100 ML @ 25 mls/hr IVPB Q8HR [facility] Rx#: [id number] Oral 100 / 100 0 / 0 Output: Urine 1200 / 1200 Wound Drainage 80 / 80 Abdomen 80 / 80 Other: Meal Refused Breakfast Weight 65.2 kg Patient Weight 05/26/18 23:59 Weight 65.2 kg - General physical appearance well developed, well nourished, no distress - Eyes PERRL, normal ocular movement - ENT normal mucosa, normocephalic - Neck Neck exam: trachea midline - Respiratory normal expansion, normal respiratory effort - Cardiovascular Cardiovascular exam: Present: RRR - Abdomen Abdomen: Present: bowel sounds present, soft, tender (appropriate post op tenderness). Absent: guarding, rebound - Incision Incision: Present: clean and dry, intact - Musculoskeletal normal gait, normal posture - Psychiatric oriented to time, memory intact - Labs 05/26/18 04:26 05/26/18 04:26 Diabetes panel 05/26/18 Range/Units 04:26 Sodium 141 (136-145) mEq/L Potassium 3.2 L (3.5-5.1) mEq/L Chloride 109 H (98-107) mEq/L Carbon Dioxide 27 (23-29) mEq/L BUN 5 L (6-20) mg/dL Creatinine 0.43 L (0.60-1.20) mg/dL Glucose 77 (70-105) mg/dL Calcium 8.2 L (8.6-10.3) mg/dL Calcium panel 05/26/18 Range/Units 04:26 Calcium 8.2 L (8.6-10.3) mg/dL Pituitary panel 05/26/18 Range/Units 04:26 Sodium 141 (136-145) mEq/L Potassium 3.2 L (3.5-5.1) mEq/L Chloride 109 H (98-107) mEq/L Carbon Dioxide 27 (23-29) mEq/L BUN 5 L (6-20) mg/dL Creatinine 0.43 L (0.60-1.20) mg/dL Glucose 77 (70-105) mg/dL Calcium 8.2 L (8.6-10.3) mg/dL Adrenal panel 05/26/18 Range/Units 04:26 Sodium 141 (136-145) mEq/L Potassium 3.2 L (3.5-5.1) mEq/L Chloride 109 H (98-107) mEq/L Carbon Dioxide 27 (23-29) mEq/L BUN 5 L (6-20) mg/dL Creatinine 0.43 L (0.60-1.20) mg/dL Glucose 77 (70-105) mg/dL Calcium 8.2 L (8.6-10.3) mg/dL - Attending Attestation I have personally performed a face to face evaluation on this patient. I have reviewed and agree with the care plan. History and Exam by me shows:
[2018-05-25] MEDS: Pantoprazole 40 MG VIAL IVP SCH (09:04)
[2018-05-25] MEDS: Piperacillin/Tazobactam 3.375 GM in 0.9 % Sodium Chloride Mini Bag 100 ML IVPB SCH ×3 (09:05→23:54)
[2018-05-25] MEDS: Nicotine 21 MG PATCH.TD24 TD SCH (09:06)
[2018-05-25] MEDS: Ibuprofen 600 MG TABLET PO SCH ×3 (10:51→20:51)
[2018-05-25] MEDS: 0.9 % Sodium Chloride 1,000 ML IVC SCH (10:55)
[2018-05-25] MEDS: Ondansetron 4 MG/2 ML VIAL IVP PRN (10:56)
[2018-05-26 05:25] LABS: Basophils % 0.2 %; Eosinophils # 0.2 K/mcL (0.0-0.6); Eosinophils % 1.6 %; Hematocrit 28.6 % (35.3-44.9); Hemoglobin 9.6 g/dL (11.5-15.4); Immature Granulocytes % 0.2 % (0-4); Lymphocytes # 1.4 K/mcL (0.6-4.6); Lymphocytes % 14.9 %; Mean Corpuscular HGB Conc 33.6 g/dL (31.6-35.5); Mean Corpuscular Hemoglobin 31.7 pg (28.0-33.3); Mean Corpuscular Volume 94.4 fL (83.0-100.0); Mean Platelet Volume 10.3 fL (9.4-12.4); Monocytes # 0.8 K/mcL (0.0-1.3); Platelet Count 205 K/mcL (140-400); Red Blood Count 3.03 M/mcL (3.82-4.97); Red Cell Distribution Width 13.6 % (11.5-14.5); Segmented Neutrophils % 75.1 %
[2018-05-26 05:42] LABS: BUN/Creatinine Ratio 12 (6-26); Blood Urea Nitrogen 5 mg/dL (6-20); Calcium 8.2 mg/dL (8.6-10.3); Carbon Dioxide 27 mEq/L (23-29); Chloride 109 mEq/L (98-107); Glucose 77 mg/dL (70-105); Osmolality,Calculated 288 (280-300); Potassium 3.2 mEq/L (3.5-5.1); Sodium 141 mEq/L (136-145); eGFR For Non-African Americans > 60 (> 60)
[2018-05-26] MEDS: *HR* Heparin 5,000 UNIT/ML VIAL SQ SCH (06:17)
[2018-05-26] MEDS: Acetaminophen IV 1,000 MG/100 ML INFUS..BTL IVPB SCH (06:18)
[2018-05-26 07:51] VITALS: BP 120/73
[2018-05-26] MEDS ORDERED: *HR* OxyCODONE/APAP 5/325 TABLET PO PRN (07:54)
--- NOTE | 2018-05-26 08:31 | Discharge Summary ---
Date of Encounter: 05/26/18 Time of Encounter: 08:15 - Discharge Diagnosis (1) Gangrenous cholecystitis Priority: Primary Status: Acute (2) Smoking addiction Priority: Secondary Status: Acute (3) DVT prophylaxis Priority: Secondary Status: Acute General Surgery Exam Initial Vital Signs Temp Pulse Resp BP Pulse Ox 97.5 F L 74 16 125/80 97 05/20/18 22:03 05/20/18 22:03 05/20/18 22:03 05/20/18 22:03 05/20/18 22:03 Vital Signs Temp Pulse Resp BP Pulse Ox 05/26/18 07:25 98.3 F 78 16 120/73 93 05/26/18 04:28 98.2 F 74 15 115/77 91 05/25/18 18:42 98.3 F 80 18 114/79 91 05/25/18 11:49 98.4 F 93 19 104/70 88 Intake and Output 05/25/18 05/26/18 05/26/18 23:59 07:59 15:59 Intake Total 400 / 400 400 / 400 Output Total 1000 / 1000 1280 / 1280 Balance -600 / -600 -880 / -880 Intake: IV Fluids 200 / 200 300 / 300 Ofirmev 1,000 mg/100 ml 1,000 100 / 100 200 / 200 mg In 100 ml @ 400 mls/hr IVPB Q6HR [facility] Rx#:[id number] Zosyn 3.375 GM In 0.9 % Sodium 100 / 100 100 / 100 Chloride (Mini-Bag +) 100 ML @ 25 mls/hr IVPB Q8HR [facility] Rx#: [id number] Oral 200 / 200 100 / 100 Output: Urine 1000 / 1000 1200 / 1200 Wound Drainage 0 / 0 80 / 80 Abdomen 0 / 0 80 / 80 Other: # Voids 1 Weight 65.2 kg Patient Weight 05/26/18 23:59 Weight 65.2 kg VITAL SIGNS: Reviewed. See [facility] GENERAL: In no apparent distress. HEENT: Normocephalic, atraumatic, pupils are equal and reactive, extraocular motions intact, oropharynx is pink and moist, there is no neck adenopathy or JVD noted. CHEST/RESPIRATORY: The thorax is free from signs of trauma. Lung sounds: clear to auscultation, normal respiratory effort CARDIAC: Regular rate and rhythm. Normal S1 and S2, without murmurs, gallops, or rubs. VASCULAR: No Edema. 2+ peripheral pulses. ABDOMEN: soft, expected postoperative tenderness, active bowel sounds INCISION: Surgical incision is clean, dry, and intact. There are no signs of cellulitis or infection noted. WOUNDS/DRAINS: SE drain is with pink/serous drainage (150 to 180 ML's per day) MUSCULOSKELETAL: Good range of motion of all major joints. Extremities without clubbing, cyanosis or edema. NEUROLOGIC EXAM: Alert and oriented x 3. Speech normal. Follows commands. PSYCHIATRIC: Mood normal. SKIN: No rash or lesions. - Hospital Course Hospital course: Ms. Shah is a 42 year old female who presented on 05/21/2018 with complaints of right upper quadrant pain. Of note her abdominal and pelvis CT as well as her bile acid absorptionscan were negative. Her discomfort did not resolved and she was therefore taken to the operating room on 05/23/2018 where she underwent a lap converted to open caron with SE drain placement. She was noted to have gangrenous cholecystitis with bile peritonitis during procedure. Her final pathology - Time Spent with Patient Total time spent providing and/or coordinating discharge services: - Discharge Medications Prescriptions: OxyCODONE/APAP 5/325 [Percocet 5/325 MG] 1 each PO Q4HR PRN 7 Days #28 tablet PRN Reason: Pain Ibuprofen [Motrin] 800 mg PO Q8HR #30 tablet Amoxicillin/Clavulanate [Augmentin] 875 mg PO BIDWM #28 tablet Docusate Sodium [Colace] 100 mg PO BID #30 capsule Home Medications: Cyclobenzaprine [Flexeril] 10 mg PO TID PRN #20 tablet 05/09/18 [Rx] Amoxicillin/Clavulanate [Augmentin] 875 mg PO BIDWM #28 tablet 05/26/18 [Rx] Docusate Sodium [Colace] 100 mg PO BID #30 capsule 05/26/18 [Rx] Ibuprofen [Motrin] 800 mg PO Q8HR #30 tablet 05/26/18 [Rx] OxyCODONE/APAP 5/325 [Percocet 5/325 MG] 1 each PO Q4HR PRN 7 Days #28 tablet [Rx] Allergies/Adverse Reactions: 3 Allergy/AdvReac Type Severity Reaction Status Date / Time No Known Allergies Allergy Verified 05/21/18 11:00 Date of admission: 05/21/18 03:22 Primary care physician: PCP NONE Discharging clinician: Isabel Ferrell Anticipated date of discharge: 05/26/18 Labs on day of discharge: Labs from last 24 hours 05/26/18 05/26/18 04:26 04:26 WBC 9.4 RBC 3.03 L Hgb 9.6 L Hct 28.6 L MCV 94.4 MCH 31.7 MCHC 33.6 RDW 13.6 Plt Count 205 MPV 10.3 Immature Gran % 0.2 Seg Neutrophils % 75.1 Lymphocytes % 14.9 Monocytes % 8.0 Eosinophils % 1.6 Basophils % 0.2 Neutrophils # 7.0 Lymphocytes # 1.4 Monocytes # 0.8 Eosinophils # 0.2 Basophils # 0.0 Sodium 141 Potassium 3.2 L Chloride 109 H Carbon Dioxide 27 BUN 5 L Creatinine 0.43 L Est GFR ( Amer) > 60 Est GFR (Non-Af Amer) > 60 BUN/Creatinine Ratio 12 Glucose 77 Calculated Osmolality 288 Calcium 8.2 L - Impressions ITS Impressions Abdomen MRI 05/21/18 09:25 IMPRESSION: Constellation of findings is suspicious for hepatitis, though early cholecystitis could have a similar appearance. Correlate for Peñaloza sign and consider HIDA for further evaluation. Cholelithiasis. D/ / Thomas Thompson MD / Thomas Thompson MD Interpreting Provider: Thomas Thompson MD Bile Acid Absorption NM 05/21/18 12:17 IMPRESSION: No evidence for acute cholecystitis. D/ / Vishnu Stanford MD / Vishnu Stanford MD Interpreting Provider: Vishnu Stanford MD Abdomen/Pelvis CT 05/21/18 22:41 IMPRESSION: Mild suspected intra/extrahepatic biliary ductal dilation; the common duct tapers distally without obstructing calcified stone. Correlation for biliary obstruction is recommended. Suspected periportal edema, nonspecific finding which could be related to hydration. It is also can be seen with inflammatory processes of the right upper quadrant to include hepatitis. D/ / Deborah Chacon Cha, MD / Deborah Chacon Cha, MD Interpreting Provider: Deborah Chacon Cha, MD - Patient Status Disposition: Home, Self-Care Condition: Fair Functional capacity at discharge: independent ambulation Overall status at discharge: patient is progressing back to baseline - Discharge Instructions Instructions: Imtiaz-Odonnell Drain Care (DC), Open Cholecystectomy (DC) Follow Up With: NONE,PCP [Primary Care Provider] - Ruby Hoang ACID BLEACHER [Advanced Practice Nurse] - 06/02/18 9:30 am Forms: ED Satisfaction Letter, Work/School Release Additional Instructions: General Surgical Discharge Instructions 1. No pushing, pulling, or lifting greater than 15 lbs for 2-4 weeks (depending upon procedure). 2. You may shower beginning today, but no tub baths, soaking, or swimming for 2 weeks. 3. You may resume driving when you are off narcotics and are safe to react in a car. 4. Take ibuprofen every 8 hours for discomfort. If this does not relieve discomfort, you may take the as needed Percocet. Take narcotics as directed. Do not take more narcotics then directed and do not share your narcotics with any other person. Do not drink alcohol while on narcotics. 5. Take stool softeners (Colace) or a water based laxative (Miralax) while taking narcotics. You may hold for loose stools. 6. Report any fevers greater than 100.5F, increase abdominal discomfort, drainage that looks like pus, increased redness or pain at the surgical site, or any vomiting. 7. Report any pain in the calves, shortness of breath, or rapid heartbeat. 8. Follow-up in the office as directed. 9. If you were prescribed antibiotics, do not stop them without talking to your provider. Daily ES Drain Care: 1. Remove dressings. Shower with antibacterial soap. 2. Do not let the SE drain dangle from your body. Use the safety pin to secure to your clothing. Secure the SE to a lanyard or other type of long necklace when you shower. 3. Replace drain gauze and taped to secure. 4. Record the output from your SE bulb (at least once daily) on the form provided and bring this with you to your follow-up appointment. 5. Keep the SE drain to suction (squeeze the bulb and replace the cap while squeezing). 6. Strip the lines twice daily (hold onto the line as close to the body as you can, then with the other hand push the contents of the line into the SE bulb). - Diet and Activity Activity: increase activity as tolerated Diet: advance to your usual diet
[2018-05-26] MEDS: Pantoprazole 40 MG VIAL IVP SCH (09:35)
[2018-05-26] MEDS: Ibuprofen 600 MG TABLET PO SCH (09:36)
[2018-05-26] MEDS: Nicotine 21 MG PATCH.TD24 TD SCH (09:48)
== END 2018-05-26 10:56 | disposition home or self-care (01) | DRG 263 ==
LOC: 3ANU 21:47 → EMEROOARM 21:47 → OBSVTOIN 05-21 03:22 → 3ANU 05-21 03:57
PROVIDERS: ADMIT Surgery; ATTEND Surgery